=== PATIENT | female | born 1955 | race Caucasian/White ===

== ENCOUNTER → 2016-07-18 | Outpatient (CLI) | payer BC ==
[2016-07-18 09:00] LABS: ALANINE AMINOTRANSFERASE 19 U/L (9-52); ALBUMIN 3.9 g/dL (3.5-5.0); ALKALINE PHOSPHATASE 47 U/L (38-126); ANION GAP 10 (5-19); ASPARTATE AMINO TRANSFERASE 17 U/L (14-36); BILIRUBIN,TOTAL 0.4 mg/dL (0.2-1.3); BLOOD UREA NITROGEN 29 mg/dL (7-20); CALCIUM 9.7 mg/dL (8.4-10.2); CARBON DIOXIDE 33 mmol/L (22-30); CHLORIDE 100 mmol/L (98-107); CHOLESTEROL 124.13 mg/dL (0-200); Direct HDL 45 mg/dL (>40); GLUCOSE 101 mg/dL (75-110); POTASSIUM 4.4 mmol/L (3.6-5.0); SODIUM 142.6 mmol/L (137-145); TOTAL PROTEIN 6.5 g/dL (6.3-8.2); TRIGLYCERIDES 162 mg/dL (<150); URIC ACID 4.9 mg/dL (2.5-7.5)
[2016-07-18 09:11] LABS: DIRECT LDL 46 mg/dL (<100)
[2016-07-18 09:12] LABS: VLDL CHOLESTEROL 32.4 mg/dL (10-31)
[2016-07-18 09:24] LABS: THYROID STIMULATING HORMONE 0.62 uIU/mL (0.47-4.68)
== END ==
LOC: OD 07:19
PROVIDERS: ATTEND Internal Medicine
DX: E55.9 Vitamin D deficiency, unspecified (principal); E11.22 Type 2 diabetes mellitus with diabetic chronic kidney disease; I12.9 Hypertensive chronic kidney disease with stage 1 through stage 4 chronic kidney disease, or unspecified chronic kidney disease; N18.9 Chronic kidney disease, unspecified; E03.8 Other specified hypothyroidism; E78.2 Mixed hyperlipidemia; E79.0 Hyperuricemia without signs of inflammatory arthritis and tophaceous disease
CPT/HCPCS: 36415; 80053; 80061; 82043; 82306; 83036; 84439; 84443; 84550

== ENCOUNTER → 2016-11-18 | Outpatient (CLI) | payer BC ==
[2016-11-18 08:39] LABS: ALANINE AMINOTRANSFERASE 29 U/L (9-52); ALKALINE PHOSPHATASE 55 U/L (38-126); ANION GAP 8 (5-19); ASPARTATE AMINO TRANSFERASE 20 U/L (14-36); BILIRUBIN,DIRECT 0.5 mg/dL (0.0-0.4); BILIRUBIN,TOTAL 0.5 mg/dL (0.2-1.3); BLOOD UREA NITROGEN 28 mg/dL (7-20); CALCIUM 9.4 mg/dL (8.4-10.2); CARBON DIOXIDE 31 mmol/L (22-30); CHLORIDE 103 mmol/L (98-107); CHOLESTEROL 134.92 mg/dL (0-200); CREATININE RESULT 1.34 mg/dL (0.52-1.25); Direct HDL 52 mg/dL (>40); GLUCOSE 93 mg/dL (75-110); POTASSIUM 4.3 mmol/L (3.6-5.0); SODIUM 141.7 mmol/L (137-145); TOTAL PROTEIN 7.1 g/dL (6.3-8.2); TRIGLYCERIDES 132 mg/dL (<150)
[2016-11-18 08:47] LABS: ABSOLUTE EOSINOPHILS # (AUTO) 0.1 10^3/uL (0.0-0.6); ABSOLUTE LYMPHOCYTES (AUTO) 1.6 10^3/uL (0.5-4.7); ABSOLUTE MONOCYTES (AUTO) 0.4 10^3/uL (0.1-1.4); ABSOLUTE NEUT (AUTO) 5.6 10^3/uL (1.7-8.2); BASOPHILS % (AUTO) 0.3 % (0-2); EOSINOPHILS % (AUTO) 1.9 % (0-6); HEMATOCRIT 35.8 % (36.0-47.0); HEMOGLOBIN 11.4 g/dL (12.0-15.5); HGB HCT DIFFERENCE -1.6; LYMPHOCYTES % (AUTO) 20.9 % (13-45); MEAN CORPUSCULAR HEMOGLOBIN 24.1 pg (27.0-33.4); MEAN CORPUSCULAR HGB CONC 31.9 g/dL (32.0-36.0); MEAN CORPUSCULAR VOLUME 76 fl (80-97); MONOCYTES % (AUTO) 5.2 % (3-13); RED BLOOD COUNT 4.74 10^6/uL (3.72-5.28); SEGMENTED NEUTROPHILS % (AUTO) 71.7 % (42-78); WHITE BLOOD COUNT 7.8 10^3/uL (4.0-10.5)
[2016-11-18 08:50] LABS: DIRECT LDL 48 mg/dL (<100)
== END ==
LOC: OD 07:04
PROVIDERS: ATTEND Internal Medicine
DX: E11.22 Type 2 diabetes mellitus with diabetic chronic kidney disease (principal); E78.2 Mixed hyperlipidemia; D50.8 Other iron deficiency anemias
CPT/HCPCS: 36415; 80053; 80061; 82728; 83036; 85025

== ENCOUNTER → 2017-01-16 | Outpatient (CLI) | payer BC ==
[2017-01-16 12:48] LABS: ABSOLUTE EOSINOPHILS # (AUTO) 0.1 10^3/uL (0.0-0.6); ABSOLUTE LYMPHOCYTES (AUTO) 1.2 10^3/uL (0.5-4.7); ABSOLUTE MONOCYTES (AUTO) 0.5 10^3/uL (0.1-1.4); ABSOLUTE NEUT (AUTO) 4.7 10^3/uL (1.7-8.2); BASOPHILS % (AUTO) 0.3 % (0-2); EOSINOPHILS % (AUTO) 1.1 % (0-6); HEMATOCRIT 36.9 % (36.0-47.0); HGB HCT DIFFERENCE -0.9; LYMPHOCYTES % (AUTO) 17.7 % (13-45); MEAN CORPUSCULAR HEMOGLOBIN 25.3 pg (27.0-33.4); MEAN CORPUSCULAR HGB CONC 32.4 g/dL (32.0-36.0); MEAN CORPUSCULAR VOLUME 78 fl (80-97); MONOCYTES % (AUTO) 8.4 % (3-13); RED BLOOD COUNT 4.74 10^6/uL (3.72-5.28); RED CELL DISTRIBUTION WIDTH 17.2 % (11.5-14.0); SEGMENTED NEUTROPHILS % (AUTO) 72.5 % (42-78); WHITE BLOOD COUNT 6.5 10^3/uL (4.0-10.5)
[2017-01-16 13:14] LABS: ANION GAP 13 (5-19); BLOOD UREA NITROGEN 29 mg/dL (7-20); CALCIUM 9.7 mg/dL (8.4-10.2); CARBON DIOXIDE 27 mmol/L (22-30); CHLORIDE 100 mmol/L (98-107); CREATININE RESULT 1.23 mg/dL (0.52-1.25); GLUCOSE 113 mg/dL (75-110); POTASSIUM 4.1 mmol/L (3.6-5.0); SODIUM 140.4 mmol/L (137-145)
== END ==
LOC: OD 10:15
PROVIDERS: ATTEND Physician Assistant
DX: D50.8 Other iron deficiency anemias (principal); I10 Essential (primary) hypertension
CPT/HCPCS: 36415; 80048; 85025

== ENCOUNTER → 2017-02-20 | Outpatient (CLI) | payer BC ==
[2017-02-20 08:13] LABS: ABSOLUTE EOSINOPHILS # (AUTO) 0.1 10^3/uL (0.0-0.6); ABSOLUTE LYMPHOCYTES (AUTO) 1.5 10^3/uL (0.5-4.7); ABSOLUTE MONOCYTES (AUTO) 0.4 10^3/uL (0.1-1.4); ABSOLUTE NEUT (AUTO) 4.1 10^3/uL (1.7-8.2); BASOPHILS % (AUTO) 0.4 % (0-2); EOSINOPHILS % (AUTO) 1.9 % (0-6); HEMATOCRIT 33.4 % (36.0-47.0); HGB HCT DIFFERENCE -0.4; LYMPHOCYTES % (AUTO) 23.9 % (13-45); MEAN CORPUSCULAR HEMOGLOBIN 25.6 pg (27.0-33.4); MEAN CORPUSCULAR HGB CONC 32.8 g/dL (32.0-36.0); MEAN CORPUSCULAR VOLUME 78 fl (80-97); MONOCYTES % (AUTO) 5.9 % (3-13); RED BLOOD COUNT 4.28 10^6/uL (3.72-5.28); RED CELL DISTRIBUTION WIDTH 17.2 % (11.5-14.0); SEGMENTED NEUTROPHILS % (AUTO) 67.9 % (42-78); WHITE BLOOD COUNT 6.1 10^3/uL (4.0-10.5)
[2017-02-20 08:39] LABS: ALANINE AMINOTRANSFERASE 19 U/L (9-52); ALBUMIN 3.8 g/dL (3.5-5.0); ALKALINE PHOSPHATASE 63 U/L (38-126); ANION GAP 7 (5-19); ASPARTATE AMINO TRANSFERASE 17 U/L (14-36); BILIRUBIN,DIRECT 0.4 mg/dL (0.0-0.4); BILIRUBIN,TOTAL 0.4 mg/dL (0.2-1.3); BLOOD UREA NITROGEN 32 mg/dL (7-20); CALCIUM 10.1 mg/dL (8.4-10.2); CARBON DIOXIDE 32 mmol/L (22-30); CHLORIDE 102 mmol/L (98-107); CREATININE RESULT 1.43 mg/dL (0.52-1.25); Direct HDL 47 mg/dL (>40); GLUCOSE 112 mg/dL (75-110); POTASSIUM 4.4 mmol/L (3.6-5.0); SODIUM 141.3 mmol/L (137-145); TOTAL PROTEIN 6.8 g/dL (6.3-8.2); TRIGLYCERIDES 182 mg/dL (<150); URIC ACID 5.6 mg/dL (2.5-7.5)
[2017-02-20 08:51] LABS: DIRECT LDL 57 mg/dL (<100)
[2017-02-20 09:11] LABS: THYROID STIMULATING HORMONE 1.24 uIU/mL (0.47-4.68)
[2017-02-20 09:18] LABS: VLDL CHOLESTEROL 36.4 mg/dL (10-31)
== END ==
LOC: OD 07:05
PROVIDERS: ATTEND Internal Medicine
DX: E11.22 Type 2 diabetes mellitus with diabetic chronic kidney disease (principal); N18.3 Chronic kidney disease, stage 3 (moderate); E78.2 Mixed hyperlipidemia; D50.8 Other iron deficiency anemias; E03.8 Other specified hypothyroidism; E79.0 Hyperuricemia without signs of inflammatory arthritis and tophaceous disease
CPT/HCPCS: 36415; 80053; 80061; 82272; 82728; 83036; 83540; 83550; 84439; 84443; 84550; 85025

== ENCOUNTER 2017-03-31 07:05 | Day surgery (SDC) | payer BC ==
[2017-03-31] MEDS ORDERED: NALOXONE HCL INJ/PF 0.4 MG/1 ML SDV ONE (07:19)
[2017-03-31] MEDS ORDERED: GLYCOPYRROLATE INJ 0.4 MG/2 ML VIAL ONE (07:19)
[2017-03-31] MEDS ORDERED: ONDANSETRON HCL INJ/PF 4 MG/2 ML SDV ONE ×2 (07:19→10:14)
[2017-03-31] MEDS ORDERED: GLUCAGON,HUMAN RECOMB 1 MG INJ ONE (07:21)
[2017-03-31] MEDS ORDERED: EPINEPHRINE INJ 1 MG/10 ML DISP.SYRIN ONE (07:21)
[2017-03-31] MEDS ORDERED: FLUMAZENIL INJ 0.5 MG/5 ML VIAL ONE (07:21)
[2017-03-31 07:29] LABS: HEMATOCRIT 36.9 % (36.0-47.0); HEMOGLOBIN 12.2 g/dL (12.0-15.5); HGB HCT DIFFERENCE -0.3; MEAN CORPUSCULAR HEMOGLOBIN 25.4 pg (27.0-33.4); MEAN CORPUSCULAR VOLUME 77 fl (80-97); RED CELL DISTRIBUTION WIDTH 16.6 % (11.5-14.0); WHITE BLOOD COUNT 9.2 10^3/uL (4.0-10.5)
[2017-03-31 07:53] LABS: ANION GAP 10 (5-19); BLOOD UREA NITROGEN 16 mg/dL (7-20); CARBON DIOXIDE 32 mmol/L (22-30); CHLORIDE 99 mmol/L (98-107); CREATININE RESULT 1.18 mg/dL (0.52-1.25); GLUCOSE 87 mg/dL (75-110); POTASSIUM 3.7 mmol/L (3.6-5.0); SODIUM 141.4 mmol/L (137-145)
[2017-03-31] MEDS: MIDAZOLAM 2 MG/2 ML INJ ONE ×3 (08:57→09:17)
[2017-03-31] MEDS: FENTANYL CITRATE INJ/PF 100 MCG/2 ML AMPUL ONE ×3 (09:00→09:11)
--- NOTE | 2017-03-31 10:00 | PDOC DISCHARGE SUMMARY ---
Discharge Summary (SDC) - Discharge Final Diagnosis: Sigmoid diverticulosis. Internal hemorrhoids. Date of Surgery: 03/31/17 Discharge Date: 03/31/17 Condition: Good Treatment or Instructions: Colonoscopy. October discharge patient home. Follow-up with me next week. Prescriptions: Hydrocortisone/Pramoxine [Analpram Hc 2.5% Cream] 30 gm RC TID 7 Days #1 cream.[email or web address] Referrals: ANDRY PANTOJA MD [Primary Care Provider] - Discharge Diet: As Tolerated Discharge Activity: Activity As Tolerated Report the Following to Your Physician Immediately: Increase in Pain, Unusual Bleeding
--- NOTE | 2017-03-31 10:01 | Operative Report ---
Operative Report DATE OF SURGERY: 03/31/17 PREOPERATIVE DIAGNOSIS: Heme positive stool POSTOPERATIVE DIAGNOSIS: Heme positive stool, diverticulosis of the colon. Prolapsing internal hemorrhoids OPERATION: Colonoscopy SURGEON: IFRAH MARIO ANESTHESIA: Moderate Sedation TISSUE REMOVED OR ALTERED: None COMPLICATIONS: None ESTIMATED BLOOD LOSS: None INTRAOPERATIVE FINDINGS: Multiple large sigmoid colon diverticuli. Prolapsed internal hemorrhoids. PROCEDURE: Informed consent was obtained. Patient was brought to the endoscopy suite. IV sedation with Versed and fentanyl was administered. Digital rectal exam revealed no palpable perianal masses, however, she had prolapsed internal hemorrhoids without evidence of strangulation or thrombosis. There were reducible. Endoscope was passed via the patient's anus it was fed to the cecum. The bowel prep was fair with liquid green stool throughout the colon requiring irrigation aspiration to obtain adequate visualization. The cecum, right colon, transverse colon, and descending colon all appeared normal other than marked redundancies. No polyps and no masses were seen. The sigmoid colon had multiple large diverticuli but otherwise appeared normal. The rectum appeared normal. Patient tolerated procedure well with no apparent complications and was taken to the recovery in stable condition. Colonoscopy demonstrated incidental large sigmoid diverticulosis. No evidence of malignancy found. She does have internal hemorrhoids. Will place her on Analpram and will follow up with the patient.
[2017-03-31 11:56] VITALS: BP 181/74
== END 2017-03-31 11:00 | disposition home or self-care (01) ==
LOC: END 07:05
PROVIDERS: ATTEND Surgery
DX: K57.30 Diverticulosis of large intestine without perforation or abscess without bleeding (principal); K64.8 Other hemorrhoids; K21.9 Gastro-esophageal reflux disease without esophagitis; I10 Essential (primary) hypertension; M06.9 Rheumatoid arthritis, unspecified; E78.00 Pure hypercholesterolemia, unspecified; I12.9 Hypertensive chronic kidney disease with stage 1 through stage 4 chronic kidney disease, or unspecified chronic kidney disease; E11.22 Type 2 diabetes mellitus with diabetic chronic kidney disease; N18.9 Chronic kidney disease, unspecified; Z88.2 Allergy status to sulfonamides; Z88.8 Allergy status to other drugs, medicaments and biological substances; Z79.82 Long term (current) use of aspirin; Z79.899 Other long term (current) drug therapy; Z79.84 Long term (current) use of oral hypoglycemic drugs
CPT/HCPCS: 45378; 36415; 82962; 85027; 80048; J2250; J3010; J2405; J0171; J1610; J2310; J3490

== ENCOUNTER → 2017-04-06 | Outpatient (CLI) | payer BC ==
[2017-04-07 09:12] LABS: ALANINE AMINOTRANSFERASE 30 U/L (9-52); ALBUMIN 4.3 g/dL (3.5-5.0); ALKALINE PHOSPHATASE 65 U/L (38-126); ANION GAP 14 (5-19); ASPARTATE AMINO TRANSFERASE 15 U/L (14-36); BILIRUBIN,DIRECT 0.4 mg/dL (0.0-0.4); BILIRUBIN,TOTAL 0.5 mg/dL (0.2-1.3); BLOOD UREA NITROGEN 25 mg/dL (7-20); CALCIUM 9.5 mg/dL (8.4-10.2); CARBON DIOXIDE 30 mmol/L (22-30); CHLORIDE 101 mmol/L (98-107); CREATININE RESULT 1.24 mg/dL (0.52-1.25); GLUCOSE 98 mg/dL (75-110); POTASSIUM 4.4 mmol/L (3.6-5.0); SODIUM 144.7 mmol/L (137-145); TOTAL PROTEIN 6.9 g/dL (6.3-8.2)
== END ==
LOC: OD 14:09
PROVIDERS: ATTEND Internal Medicine
DX: N18.3 Chronic kidney disease, stage 3 (moderate) (principal)
CPT/HCPCS: 36415; 80053

== ENCOUNTER → 2017-04-08 | Outpatient (CLI) | payer BC ==
--- NOTE | 2017-04-08 09:52 | WOMENS IMAGING REPORT ---
EXAM DESCRIPTION: U/S ABDOMEN LIMITED COMPLETED DATE/TIME: 04/08/2017 8:18 am REASON FOR STUDY: UNSPECIFIED ABDOMINAL PAIN R10.9 UNSPECIFIED ABDOMINAL PAIN COMPARISON: 2011. TECHNIQUE: Dynamic and static grayscale images acquired of the abdomen and recorded on PACS. Additio nal selected color Doppler and spectral images recorded. LIMITATIONS: None. FINDINGS: PANCREAS: No masses. Visualized pancreatic duct normal caliber. LIVER: Echogenic appearance suggests fatty change. Just under 18 cm. No focal lesion. LIVER VASCULATURE: Normal directional flow of the main portal vein and hepatic veins. GALLBLADDER: Surgically absent. ULTRASOUND-DETECTED CULVER'S SIGN: Not applicable. INTRAHEPATIC DUCTS AND COMMON DUCT: CBD and intrahepatic ducts normal caliber. No filling defects. INFERIOR VENA CAVA: Normal flow. AORTA: No aneurysm. RIGHT KIDNEY: Cortical thinning. No urinary obstruction evident. PERITONEAL AND RIGHT PLEURAL SPACE: No ascites or effusions. OTHER: Ventral palpable abnormality reported above the level of the umbilicus. Additional imaging th rough this area suggests slight ventral hernia in the deep subcutaneous tissues. IMPRESSION: 1. Fatty liver. 2. Probable mild deep ventral hernia. This looks supraumbilical. TECHNICAL DOCUMENTATION: JOB ID: [id number] [employer]- All Rights Reserved
== END ==
LOC: WI 07:43
PROVIDERS: ATTEND Surgery
DX: R10.9 Unspecified abdominal pain (principal)
CPT/HCPCS: 76705

== ENCOUNTER → 2017-06-26 | Outpatient (CLI) | payer BC ==
--- NOTE | 2017-06-26 09:27 | WOMENS IMAGING REPORT ---
EXAM DESCRIPTION: BONE DENSITY HIP/SPINE COMPLETED DATE/TIME: 06/26/2017 9:09 am REASON FOR STUDY: OSTEOPOROSIS M81.0 AGE-RELATED OSTEOPOROSIS W/O CURRENT PATHOLOGICAL FRAC COMPARISON: 05/08/2015 TECHNIQUE: Dual-Energy X-ray Absorptiometry (DEXA) of the AP Spine and Hip. LIMITATIONS: None. FINDINGS: LUMBAR SPINE: The bone mineral density (BMD) measured from L1-L4 in the AP projection correlates with a T-score of -1.4, which is osteopenia as defined by the World Health Organization. -3.6% change since prior stud y. HIP: The bone mineral density (BMD) measured in the left hip correlates with a T-score of 0.6 in the femor al neck, which is normal as defined by the World Health Organization. -15% change since prior study. IMPRESSION: 1. LUMBAR SPINE: OSTEOPENIA. 2. HIP: NORMAL. COMMENT: The World Health Organization defines low BMD as follows: T-score: Normal: Greater than -1.0 Osteopenia: Between -1.0 and -2.5 Osteoporosis: Less than -2.5 without fractures Established osteoporosis: Less than -2.5 with fractures In general, you may wish to consider: Diagnosis Treatment Follow-up DEXA Normal BMD Prevention 2-3 years Osteopenia Prevention/Therapy 1-2 years Osteoporosis Therapy Yearly TECHNICAL DOCUMENTATION: JOB ID: [id number]- All Rights Reserved
== END ==
LOC: WI 08:04
PROVIDERS: ATTEND Internal Medicine
DX: M81.0 Age-related osteoporosis without current pathological fracture (principal)
CPT/HCPCS: 77080

== ENCOUNTER → 2017-08-11 | Outpatient (CLI) | payer BC ==
[2017-08-11 08:11] LABS: ABSOLUTE EOSINOPHILS # (AUTO) 0.2 10^3/uL (0.0-0.6); ABSOLUTE LYMPHOCYTES (AUTO) 1.5 10^3/uL (0.5-4.7); ABSOLUTE MONOCYTES (AUTO) 0.5 10^3/uL (0.1-1.4); ABSOLUTE NEUT (AUTO) 4.6 10^3/uL (1.7-8.2); BASOPHILS % (AUTO) 0.4 % (0-2); EOSINOPHILS % (AUTO) 2.9 % (0-6); HEMATOCRIT 37.3 % (36.0-47.0); HEMOGLOBIN 11.9 g/dL (12.0-15.5); MEAN CORPUSCULAR HEMOGLOBIN 25.1 pg (27.0-33.4); MEAN CORPUSCULAR HGB CONC 31.9 g/dL (32.0-36.0); MEAN CORPUSCULAR VOLUME 79 fl (80-97); MONOCYTES % (AUTO) 7.3 % (3-13); PLATELET COUNT 252 10^3/uL (150-450); RED BLOOD COUNT 4.74 10^6/uL (3.72-5.28); RED CELL DISTRIBUTION WIDTH 16.3 % (11.5-14.0); SEGMENTED NEUTROPHILS % (AUTO) 67.4 % (42-78); TOTAL CELLS COUNTED % (AUTO) 100 %; WHITE BLOOD COUNT 6.9 10^3/uL (4.0-10.5)
[2017-08-11 08:30] LABS: ALANINE AMINOTRANSFERASE 25 U/L (9-52); ALKALINE PHOSPHATASE 54 U/L (38-126); ANION GAP 7 (5-19); ASPARTATE AMINO TRANSFERASE 20 U/L (14-36); BILIRUBIN,DIRECT 0.4 mg/dL (0.0-0.4); BILIRUBIN,TOTAL 0.4 mg/dL (0.2-1.3); BLOOD UREA NITROGEN 26 mg/dL (7-20); CALCIUM 10.5 mg/dL (8.4-10.2); CARBON DIOXIDE 33 mmol/L (22-30); CHLORIDE 103 mmol/L (98-107); CHOLESTEROL 137.12 mg/dL (0-200); GLUCOSE 107 mg/dL (75-110); POTASSIUM 4.5 mmol/L (3.6-5.0); SODIUM 143.3 mmol/L (137-145); TRIGLYCERIDES 169 mg/dL (<150); URIC ACID 5.1 mg/dL (2.5-7.5)
[2017-08-11 08:41] LABS: DIRECT LDL 56 mg/dL (<100)
[2017-08-11 08:46] LABS: FREE T4 (FREE THYROXINE) 1.66 ng/dL (0.78-2.19)
[2017-08-11 09:00] LABS: THYROID STIMULATING HORMONE 2.23 uIU/mL (0.47-4.68)
[2017-08-11 09:09] LABS: VLDL CHOLESTEROL 33.8 mg/dL (10-31)
== END ==
LOC: OD 07:08
PROVIDERS: ATTEND Internal Medicine
DX: E11.22 Type 2 diabetes mellitus with diabetic chronic kidney disease (principal); E03.8 Other specified hypothyroidism; D50.8 Other iron deficiency anemias; E79.0 Hyperuricemia without signs of inflammatory arthritis and tophaceous disease
CPT/HCPCS: 36415; 80053; 80061; 82728; 83036; 84439; 84443; 84550; 85025

== ENCOUNTER → 2017-11-06 | Outpatient (CLI) | payer BC ==
[2017-11-07 10:40] LABS: ALANINE AMINOTRANSFERASE 27 U/L (9-52); ALBUMIN 4.1 g/dL (3.5-5.0); ALKALINE PHOSPHATASE 60 U/L (38-126); ANION GAP 11 (5-19); ASPARTATE AMINO TRANSFERASE 20 U/L (14-36); BILIRUBIN,DIRECT 0.3 mg/dL (0.0-0.4); BILIRUBIN,TOTAL 0.5 mg/dL (0.2-1.3); BLOOD UREA NITROGEN 24 mg/dL (7-20); CARBON DIOXIDE 33 mmol/L (22-30); CHLORIDE 98 mmol/L (98-107); CHOLESTEROL 163.86 mg/dL (0-200); GLUCOSE 102 mg/dL (75-110); POTASSIUM 4.5 mmol/L (3.6-5.0); SODIUM 141.6 mmol/L (137-145); TOTAL PROTEIN 6.6 g/dL (6.3-8.2); TRIGLYCERIDES 214 mg/dL (<150); URIC ACID 4.6 mg/dL (2.5-7.5)
[2017-11-07 10:51] LABS: DIRECT LDL 66 mg/dL (<100)
[2017-11-07 10:56] LABS: VLDL CHOLESTEROL 42.8 mg/dL (10-31)
[2017-11-09 14:41] LABS: CALCITONIN SERUM 2.7 pg/mL (0.0-5.0)
== END ==
LOC: OD 09:13
PROVIDERS: ATTEND Internal Medicine
DX: E55.9 Vitamin D deficiency, unspecified (principal); E78.2 Mixed hyperlipidemia; E79.0 Hyperuricemia without signs of inflammatory arthritis and tophaceous disease; N18.3 Chronic kidney disease, stage 3 (moderate)
CPT/HCPCS: 36415; 80053; 80061; 82306; 82308; 83970; 84550

== ENCOUNTER → 2018-02-02 | Outpatient (CLI) | payer BC ==
[2018-02-02 10:02] LABS: ALANINE AMINOTRANSFERASE 20 U/L (9-52); ALBUMIN 4.1 g/dL (3.5-5.0); ALKALINE PHOSPHATASE 54 U/L (38-126); ANION GAP 12 (5-19); ASPARTATE AMINO TRANSFERASE 18 U/L (14-36); BILIRUBIN,DIRECT 0.4 mg/dL (0.0-0.4); BILIRUBIN,TOTAL 0.5 mg/dL (0.2-1.3); BLOOD UREA NITROGEN 28 mg/dL (7-20); CALCIUM 10.2 mg/dL (8.4-10.2); CARBON DIOXIDE 32 mmol/L (22-30); CHLORIDE 99 mmol/L (98-107); CHOLESTEROL 140.64 mg/dL (0-200); GLUCOSE 114 mg/dL (75-110); POTASSIUM 4.8 mmol/L (3.6-5.0); SODIUM 143.1 mmol/L (137-145); TOTAL PROTEIN 7.3 g/dL (6.3-8.2); TRIGLYCERIDES 189 mg/dL (<150)
[2018-02-02 10:12] LABS: DIRECT LDL 53 mg/dL (<100)
[2018-02-02 10:16] LABS: FREE T4 (FREE THYROXINE) 2.25 ng/dL (0.78-2.19)
[2018-02-02 10:19] LABS: VLDL CHOLESTEROL 37.8 mg/dL (10-31)
[2018-02-02 10:30] LABS: THYROID STIMULATING HORMONE 0.83 uIU/mL (0.47-4.68)
== END ==
LOC: OD 08:04
PROVIDERS: ATTEND Internal Medicine
DX: E03.8 Other specified hypothyroidism (principal); E11.22 Type 2 diabetes mellitus with diabetic chronic kidney disease; N18.9 Chronic kidney disease, unspecified; E78.2 Mixed hyperlipidemia
CPT/HCPCS: 36415; 80053; 80061; 83036; 84439; 84443

== ENCOUNTER → 2018-02-16 | Outpatient (CLI) | payer BC ==
[2018-02-16 17:18] LABS: HEMATOCRIT 35.9 % (36.0-47.0); HEMOGLOBIN 11.6 g/dL (12.0-15.5); MEAN CORPUSCULAR HEMOGLOBIN 25.1 pg (27.0-33.4); MEAN CORPUSCULAR HGB CONC 32.3 g/dL (32.0-36.0); MEAN CORPUSCULAR VOLUME 78 fl (80-97); PLATELET COUNT 302 10^3/uL (150-450); RED BLOOD COUNT 4.62 10^6/uL (3.72-5.28); RED CELL DISTRIBUTION WIDTH 16.3 % (11.5-14.0)
[2018-02-16 17:46] LABS: ALANINE AMINOTRANSFERASE 26 U/L (9-52); ALKALINE PHOSPHATASE 82 U/L (38-126); ASPARTATE AMINO TRANSFERASE 17 U/L (14-36); BILIRUBIN,DIRECT 0.3 mg/dL (0.0-0.4); BILIRUBIN,TOTAL 0.4 mg/dL (0.2-1.3); C-REACTIVE PROTEIN 14.3 mg/L (<10.0); TOTAL PROTEIN 7.1 g/dL (6.3-8.2)
== END ==
LOC: OD 16:18
PROVIDERS: ATTEND Internal Medicine Rheumatology
DX: M05.79 Rheumatoid arthritis with rheumatoid factor of multiple sites without organ or systems involvement (principal); Z79.899 Other long term (current) drug therapy
CPT/HCPCS: 36415; 80076; 82565; 85027; 86140

== ENCOUNTER → 2018-03-06 | Outpatient (CLI) | payer BC ==
[2018-03-06 11:45] LABS: ALANINE AMINOTRANSFERASE 16 U/L (9-52); ALBUMIN 3.9 g/dL (3.5-5.0); ALKALINE PHOSPHATASE 51 U/L (38-126); ANION GAP 7 (5-19); ASPARTATE AMINO TRANSFERASE 20 U/L (14-36); BILIRUBIN,DIRECT 0.4 mg/dL (0.0-0.4); BILIRUBIN,TOTAL 0.5 mg/dL (0.2-1.3); BLOOD UREA NITROGEN 23 mg/dL (7-20); CALCIUM 9.9 mg/dL (8.4-10.2); CARBON DIOXIDE 32 mmol/L (22-30); CHLORIDE 103 mmol/L (98-107); GLUCOSE 80 mg/dL (75-110); POTASSIUM 4.4 mmol/L (3.6-5.0); SODIUM 142.2 mmol/L (137-145); TOTAL PROTEIN 7.1 g/dL (6.3-8.2)
== END ==
LOC: OD 10:19
PROVIDERS: ATTEND Internal Medicine
DX: E11.22 Type 2 diabetes mellitus with diabetic chronic kidney disease (principal); N18.3 Chronic kidney disease, stage 3 (moderate)
CPT/HCPCS: 36415; 80053

== ENCOUNTER → 2018-07-03 | Outpatient (CLI) | payer BC ==
[2018-07-03 10:13] LABS: HEMATOCRIT 34.2 % (36.0-47.0); HEMOGLOBIN 11.1 g/dL (12.0-15.5); MEAN CORPUSCULAR HEMOGLOBIN 25.2 pg (27.0-33.4); MEAN CORPUSCULAR HGB CONC 32.5 g/dL (32.0-36.0); MEAN CORPUSCULAR VOLUME 78 fl (80-97); PLATELET COUNT 268 10^3/uL (150-450); RED BLOOD COUNT 4.41 10^6/uL (3.72-5.28); RED CELL DISTRIBUTION WIDTH 16.5 % (11.5-14.0); WHITE BLOOD COUNT 5.9 10^3/uL (4.0-10.5)
[2018-07-03 10:35] LABS: ALANINE AMINOTRANSFERASE 18 U/L (9-52); ALBUMIN 3.7 g/dL (3.5-5.0); ALKALINE PHOSPHATASE 63 U/L (38-126); ANION GAP 9 (5-19); ASPARTATE AMINO TRANSFERASE 20 U/L (14-36); BILIRUBIN,DIRECT 0.4 mg/dL (0.0-0.4); BILIRUBIN,TOTAL 0.5 mg/dL (0.2-1.3); BLOOD UREA NITROGEN 25 mg/dL (7-20); CALCIUM 9.5 mg/dL (8.4-10.2); CARBON DIOXIDE 29 mmol/L (22-30); CHLORIDE 103 mmol/L (98-107); CHOLESTEROL 135.57 mg/dL (0-200); GLUCOSE 112 mg/dL (75-110); POTASSIUM 4.2 mmol/L (3.6-5.0); SODIUM 140.5 mmol/L (137-145); TOTAL PROTEIN 6.6 g/dL (6.3-8.2); TRIGLYCERIDES 161 mg/dL (<150); URIC ACID 5.1 mg/dL (2.5-7.5)
[2018-07-03 10:45] LABS: DIRECT LDL 69 mg/dL (<100)
[2018-07-03 11:01] LABS: THYROID STIMULATING HORMONE 1.15 uIU/mL (0.47-4.68)
[2018-07-03 11:05] LABS: ABSOLUTE MONOCYTES # (MANUAL) 0.4 10^3/uL (0.1-1.4); ABSOLUTE NEUTROPHILS# (MANUAL) 4.5 10^3/uL (1.7-8.2); BASOPHILS % (MANUAL) 0 % (0-2); EOSINOPHILS % (MANUAL) 1 % (0-6); LYMPHOCYTES % (MANUAL) 17 % (13-45); METAMYELOCYTES % (MANUAL) 1 % ({null, 0}); MONOCYTES % (MANUAL) 6 % (3-13); SEGMENTED NEUTROPHILS % (MAN) 75 % (42-78); TOTAL CELLS COUNTED 100
[2018-07-03 11:06] LABS: ANISOCYTOSIS 1+; HYPOCHROMASIA 1+; OVALOCYTES 1+; POLYCHROMASIA SLIGHT; TEAR DROP CELLS SLIGHT
[2018-07-03 11:07] LABS: PLATELET COMMENT ADEQUATE; POIKILOCYTOSIS 1+
[2018-07-03 11:13] LABS: VLDL CHOLESTEROL 32.2 mg/dL (10-31)
[2018-07-05 03:36] LABS: CREATININE URINE 118.3 mg/dL (Not Estab.); MICROALBUMIN URINE 5.4 ug/mL (Not Estab.)
== END ==
LOC: OD 08:35
PROVIDERS: ATTEND Internal Medicine
DX: E79.0 Hyperuricemia without signs of inflammatory arthritis and tophaceous disease (principal); E11.22 Type 2 diabetes mellitus with diabetic chronic kidney disease; D50.8 Other iron deficiency anemias; E78.2 Mixed hyperlipidemia; N18.3 Chronic kidney disease, stage 3 (moderate); E03.8 Other specified hypothyroidism
CPT/HCPCS: 36415; 80053; 80061; 82043; 82570; 82728; 83036; 84439; 84443; 84550; 85025

== ENCOUNTER → 2018-09-25 | Outpatient (CLI) | payer BC ==
[2018-09-25 10:28] LABS: HEMATOCRIT 35.8 % (36.0-47.0); HEMOGLOBIN 11.6 g/dL (12.0-15.5); MEAN CORPUSCULAR HEMOGLOBIN 25.2 pg (27.0-33.4); MEAN CORPUSCULAR HGB CONC 32.4 g/dL (32.0-36.0); MEAN CORPUSCULAR VOLUME 78 fl (80-97); PLATELET COUNT 259 10^3/uL (150-450); RED BLOOD COUNT 4.61 10^6/uL (3.72-5.28); RED CELL DISTRIBUTION WIDTH 16.9 % (11.5-14.0); WHITE BLOOD COUNT 5.2 10^3/uL (4.0-10.5)
[2018-09-25 10:45] LABS: ALANINE AMINOTRANSFERASE 22 U/L (9-52); ALBUMIN 3.9 g/dL (3.5-5.0); ALKALINE PHOSPHATASE 69 U/L (38-126); ANION GAP 6 (5-19); ASPARTATE AMINO TRANSFERASE 26 U/L (14-36); BILIRUBIN,DIRECT 0.4 mg/dL (0.0-0.4); BILIRUBIN,TOTAL 0.5 mg/dL (0.2-1.3); BLOOD UREA NITROGEN 22 mg/dL (7-20); CARBON DIOXIDE 35 mmol/L (22-30); CHLORIDE 102 mmol/L (98-107); CHOLESTEROL 142.17 mg/dL (0-200); GLUCOSE 92 mg/dL (75-110); POTASSIUM 4.4 mmol/L (3.6-5.0); SODIUM 142.9 mmol/L (137-145); TOTAL PROTEIN 7.2 g/dL (6.3-8.2); TRIGLYCERIDES 164 mg/dL (<150)
[2018-09-25 10:55] LABS: ABSOLUTE LYMPHOCYTES# (MANUAL) 1.8 10^3/uL (0.5-4.7); ABSOLUTE MONOCYTES # (MANUAL) 0.4 10^3/uL (0.1-1.4); ABSOLUTE NEUTROPHILS# (MANUAL) 2.9 10^3/uL (1.7-8.2); BASOPHILS % (MANUAL) 1 % (0-2); EOSINOPHILS % (MANUAL) 1 % (0-6); LYMPHOCYTES % (MANUAL) 34 % (13-45); MONOCYTES % (MANUAL) 8 % (3-13); SEGMENTED NEUTROPHILS % (MAN) 56 % (42-78); TOTAL CELLS COUNTED 100
[2018-09-25 10:56] LABS: DIRECT LDL 69 mg/dL (<100)
[2018-09-25 10:57] LABS: ANISOCYTOSIS 1+; HYPOCHROMASIA SLIGHT; OVALOCYTES SLIGHT; POIKILOCYTOSIS SLIGHT; POLYCHROMASIA SLIGHT
[2018-09-25 10:58] LABS: VLDL CHOLESTEROL 32.8 mg/dL (10-31)
[2018-09-25 10:59] LABS: FREE T4 (FREE THYROXINE) 1.97 ng/dL (0.78-2.19)
[2018-09-25 11:04] LABS: PLATELET COMMENT ADEQUATE
[2018-09-25 11:13] LABS: THYROID STIMULATING HORMONE 1.26 uIU/mL (0.47-4.68)
== END ==
LOC: OD 09:04
PROVIDERS: ATTEND Internal Medicine
DX: E11.22 Type 2 diabetes mellitus with diabetic chronic kidney disease (principal); N18.3 Chronic kidney disease, stage 3 (moderate); E03.8 Other specified hypothyroidism; E79.0 Hyperuricemia without signs of inflammatory arthritis and tophaceous disease; D50.8 Other iron deficiency anemias
CPT/HCPCS: 36415; 80053; 80061; 83036; 84439; 84443; 85025

== ENCOUNTER → 2018-12-25 | Outpatient (CLI) | payer MEDICARE ==
[2018-12-25 09:34] LABS: HEMATOCRIT 35.5 % (36.0-47.0); HEMOGLOBIN 11.4 g/dL (12.0-15.5); MEAN CORPUSCULAR HEMOGLOBIN 25.2 pg (27.0-33.4); MEAN CORPUSCULAR HGB CONC 32.2 g/dL (32.0-36.0); MEAN CORPUSCULAR VOLUME 78 fl (80-97); PLATELET COUNT 234 10^3/uL (150-450); RED BLOOD COUNT 4.54 10^6/uL (3.72-5.28); RED CELL DISTRIBUTION WIDTH 16.8 % (11.5-14.0); WHITE BLOOD COUNT 7.7 10^3/uL (4.0-10.5)
[2018-12-25 09:51] LABS: ALANINE AMINOTRANSFERASE 16 U/L (9-52); ALBUMIN 3.9 g/dL (3.5-5.0); ALKALINE PHOSPHATASE 66 U/L (38-126); ANION GAP 9 (5-19); ASPARTATE AMINO TRANSFERASE 17 U/L (14-36); BILIRUBIN,DIRECT 0.3 mg/dL (0.0-0.4); BILIRUBIN,TOTAL 0.3 mg/dL (0.2-1.3); BLOOD UREA NITROGEN 28 mg/dL (7-20); CARBON DIOXIDE 32 mmol/L (22-30); CHLORIDE 101 mmol/L (98-107); CHOLESTEROL 149.04 mg/dL (0-200); GLUCOSE 138 mg/dL (75-110); POTASSIUM 4.3 mmol/L (3.6-5.0); SODIUM 141.8 mmol/L (137-145); TOTAL PROTEIN 6.9 g/dL (6.3-8.2); TRIGLYCERIDES 231 mg/dL (<150); URIC ACID 5.1 mg/dL (2.5-7.5)
[2018-12-25 10:05] LABS: DIRECT LDL 70 mg/dL (<100)
[2018-12-25 10:11] LABS: FREE T4 (FREE THYROXINE) 1.7 ng/dL (0.78-2.19)
[2018-12-25 10:15] LABS: VLDL CHOLESTEROL 46.2 mg/dL (10-31)
[2018-12-25 10:25] LABS: ABSOLUTE LYMPHOCYTES# (MANUAL) 1.6 10^3/uL (0.5-4.7); ABSOLUTE MONOCYTES # (MANUAL) 0.3 10^3/uL (0.1-1.4); BASOPHILS % (MANUAL) 0 % (0-2); EOSINOPHILS % (MANUAL) 2 % (0-6); LYMPHOCYTES % (MANUAL) 21 % (13-45); METAMYELOCYTES % (MANUAL) 1 % (0); MONOCYTES % (MANUAL) 4 % (3-13); SEGMENTED NEUTROPHILS % (MAN) 72 % (42-78); THYROID STIMULATING HORMONE 2.33 uIU/mL (0.47-4.68); TOTAL CELLS COUNTED 100
[2018-12-25 10:26] LABS: ANISOCYTOSIS 1+; HYPOCHROMASIA SLIGHT; OVALOCYTES 1+; PLATELET COMMENT ADEQUATE; POIKILOCYTOSIS 2+; POLYCHROMASIA SLIGHT
[2018-12-27 03:36] LABS: CREATININE URINE 150.9 mg/dL (Not Estab.); MICROALBUMIN URINE 11.2 ug/mL (Not Estab.)
== END ==
LOC: OD 08:33
PROVIDERS: ATTEND Internal Medicine
DX: E79.0 Hyperuricemia without signs of inflammatory arthritis and tophaceous disease (principal); E03.9 Hypothyroidism, unspecified; D63.8 Anemia in other chronic diseases classified elsewhere; N18.3 Chronic kidney disease, stage 3 (moderate); E11.22 Type 2 diabetes mellitus with diabetic chronic kidney disease; E03.8 Other specified hypothyroidism; E78.00 Pure hypercholesterolemia, unspecified; E78.2 Mixed hyperlipidemia
CPT/HCPCS: 36415; 80053; 80061; 82043; 82570; 83036; 84439; 84443; 84550; 85025

== ENCOUNTER → 2019-02-08 | Outpatient (CLI) | payer MEDICARE ==
--- NOTE | 2019-02-08 15:15 | WOMENS IMAGING REPORT ---
EXAM DESCRIPTION: 3D SCREENING MAMMO BILAT COMPLETED DATE/TIME: 02/08/2019 2:32 pm REASON FOR STUDY: Z12.31 ENCOUNTER FOR SCREENING MAMMOGRAM FOR MALIGNANT NEOPLASM OF BREAST Z12.31 ENCNTR SCREEN MAMMOGRAM FOR MALIGNANT NEOPLASM OF HILARIO COMPARISON: 06/26/2017 and 05/19/2016. EXAM PARAMETERS: Views: Standard craniocaudal and mediolateral oblique views of each breast recorded using digital acquisition and breast tomosynthesis. Read with the assistance of CAD. [facility] - [email or web address] Delinquency Counselor Version 9.2 LIMITATIONS: None. FINDINGS: No suspicious masses, suspicious calcifications or architectural distortion. No areas of c oncern. IMPRESSION: NEGATIVE MAMMOGRAM. BIRADS 1. BREAST DENSITY: b. There are scattered areas of fibroglandular density. BIRAD: ASSESSMENT: 1 NEGATIVE RECOMMENDATION: ROUTINE SCREENING COMMENT: The patient has been notified of the results by letter per MQSA requirements. Additional no tification policies are in place for contacting patient with suspicious or incomplete findings. Quality ID #225: The [employer] recommends an annual screening mammogram for women aged 40 years or over. This facility utilizes a reminder system to ensure that all patients receive reminder letters, and/or direct phone calls for appointments. This includes reminders for routine scr eening mammograms, diagnostic mammograms, or other Breast Imaging Interventions when appropriate. Th is patient will be placed in the appropriate reminder system. TECHNICAL DOCUMENTATION: FINDING NUMBER: (1) ASSESSMENT: (1) JOB ID: [id number] [employer]- All Rights Reserved Reading location - IP/workstation name: [email or web address]
== END ==
LOC: WI 12:58
PROVIDERS: ATTEND Internal Medicine
DX: Z12.31 Encounter for screening mammogram for malignant neoplasm of breast (principal)
CPT/HCPCS: 77063; 77067

== ENCOUNTER 2019-11-02 20:44 | Inpatient (IN) | payer MEDICARE ==
[2019-11-02] MEDS ORDERED: NORMAL SALINE 1000 ML 1,000 ML IV ONE ×2 (21:57→23:29)
[2019-11-02] MEDS ORDERED: ONDANSETRON HCL INJ/PF 4 MG/2 ML SDV IV ONE (21:58)
--- NOTE | 2019-11-02 22:01 | ER Document Report ---
ED Medical Screen (RME) - General Chief Complaint: Nausea/Vomiting Stated Complaint: VOMITTING/ NAUSEA Time Seen by Provider: 11/02/19 21:50 Primary Care Provider: ANDRY PANTOJA MD [Primary Care Provider] - Follow up as needed Mode of Arrival: Medic Information source: Patient Notes: This 64-year-old female with history of diabetes and high blood pressure presents to the emergency department with reports of nausea and vomiting for the past 5 days. Denies fever and diarrhea. Reports history of recent change in her blood pressure medication. She reports every time they change her BP medication she responds with nausea and vomiting. She reports she has not been any full to keep any fluids or food down for the past 5 days. Denies chest pain denies abdominal pain. No COVID exposure. I have greeted and performed a rapid initial assessment of this patient. A comprehensive ED assessment and evaluation of the patient, analysis of test results and completion of the medical decision making process will be conducted by additional ED providers. TRAVEL OUTSIDE OF THE [place] IN LAST 30 DAYS: No - Related Data Allergies/Adverse Reactions: amlodipine besylate [From [facility]] Allergy (Intermediate, Verified 03/31/17 07:35) Jaundice Sulfa (Sulfonamide Antibiotics) Allergy (Intermediate, Verified 03/31/17 07:35) Jaundice Home Medications: Telmisartan, Alprazolam, Olmesartan Past Medical History - Past Medical History Cardiac Medical History: Reports: Hx Coronary Artery Disease, Hx Hypercholesterolemia, Hx Hypertension Denies: Hx Heart Attack Pulmonary Medical History: Reports: Hx Asthma, Hx Bronchitis, Hx Pneumonia Denies: Hx COPD Neurological Medical History: Denies: Hx Cerebrovascular Accident, Hx Seizures Endocrine Medical History: Reports: Hx Diabetes Mellitus Type 2 Musculoskeltal Medical History: Reports Hx Arthritis Past Surgical History: Reports: Hx Cholecystectomy, Hx Orthopedic Surgery. Denies: Hx Hysterectomy - Immunizations Hx Diphtheria, Pertussis, Tetanus Vaccination: Yes Physical Exam - Vital signs Vitals: Resp Pulse Ox 15 96 11/02/19 20:50 11/02/19 20:50 Course - Vital Signs Vital signs: Temp Pulse Resp BP Pulse Ox 98.7 F 16 158/75 H 98 11/02/19 21:03 11/02/19 21:07 11/02/19 21:07 11/02/19 21:07 Doctor's Discharge - Discharge Referrals: ANDRY PANTOJA MD [Primary Care Provider] - Follow up as needed
[2019-11-02 22:50] LABS: HEMATOCRIT 37.6 % (36.0-47.0); HEMOGLOBIN 12.8 g/dL (12.0-15.5); MEAN CORPUSCULAR HEMOGLOBIN 25.3 pg (27.0-33.4); MEAN CORPUSCULAR VOLUME 75 fl (80-97); PLATELET COUNT 265 10^3/uL (150-450); RED BLOOD COUNT 5.04 10^6/uL (3.72-5.28); WHITE BLOOD COUNT 15.1 10^3/uL (4.0-10.5)
[2019-11-02 22:52] LABS: ALBUMIN 4.6 g/dL (3.5-5.0); ALKALINE PHOSPHATASE 73 U/L (38-126); ASPARTATE AMINO TRANSFERASE 33 U/L (14-36); BILIRUBIN,DIRECT 0.3 mg/dL (0.0-0.4); BILIRUBIN,TOTAL 1.3 mg/dL (0.2-1.3); BLOOD UREA NITROGEN 19 mg/dL (7-20); CALCIUM 9.2 mg/dL (8.4-10.2); CARBON DIOXIDE 26 mmol/L (22-30); CHLORIDE 79 mmol/L (98-107); GLUCOSE 130 mg/dL (75-110); POTASSIUM 3.5 mmol/L (3.6-5.0); TOTAL PROTEIN 7.8 g/dL (6.3-8.2)
[2019-11-02 22:53] LABS: ANION GAP 14 (5-19)
--- NOTE | 2019-11-02 23:10 | RADIOLOGY REPORT (SQ) ---
CLINICAL INDICATION: htn. TECHNIQUE: A single portable AP view was obtained of the chest at 2253 hours. Imaging over penetrated COMPARISON: None. FINDINGS: The cardiomediastinal silhouette is normal. The lungs are grossly clear. No evidence of effusion or pneumothorax. The visualized bones are unremarkable. Mild chronic change IMPRESSION: No evidence of active intrathoracic disease.
--- NOTE | 2019-11-02 23:13 | ER Document Report ---
Entered by KIMBERLY HADDAD SCRIBE 11/02/19 [id number] Acting as scribe for:OH ROGER DO ED GI/ - General Chief Complaint: Nausea/Vomiting Stated Complaint: VOMITTING/ NAUSEA Time Seen by Provider: 11/02/19 21:50 Primary Care Provider: ANDRY PANTOJA MD [Primary Care Provider] - Follow up as needed Mode of Arrival: Medic Information source: Patient Notes: This 64 year old female patient with a PMHx of diabetes, HTN, HLD, and CKD brought in by EMS presents to the ED today with complaints of nausea and vomiting for the past x5 days. Patients states that her blood pressure medication was changed x6 days ago by her PCP Dr. Schwartz from Valsartan to Losartan and that she has been feeling nauseous since. She reports that she is very "sensitive" when her blood pressure medications are changed. She notes poor appetite/fluid intake, sinus congestion that started today, low back pain, LE pain, and generalized weakness. Denies chest pain, shortness of breath, fever, or any urinary symptoms. TRAVEL OUTSIDE OF THE [place] IN LAST 30 DAYS: No - Related Data Allergies/Adverse Reactions: amlodipine besylate [From [facility]] Allergy (Intermediate, Verified 03/31/17 07:35) Jaundice Sulfa (Sulfonamide Antibiotics) Allergy (Intermediate, Verified 03/31/17 07:35) Jaundice Home Medications: Telmisartan, Alprazolam, Olmesartan Past Medical History - General Information source: Patient, [facility] Records - Social History Smoking Status: Never Smoker Cigarette use (# per day): No Chew tobacco use (# tins/day): No Smoking Education Provided: No Frequency of alcohol use: None Drug Abuse: None Lives with: Family Family History: Reviewed & Not Pertinent Patient has suicidal ideation: No Patient has homicidal ideation: No - Past Medical History Cardiac Medical History: Reports: Hx Coronary Artery Disease, Hx Hypercholesterolemia, Hx Hypertension Pulmonary Medical History: Reports: Hx Asthma, Hx Bronchitis, Hx Pneumonia Endocrine Medical History: Reports: Hx Diabetes Mellitus Type 2 Musculoskeletal Medical History: Reports Hx Arthritis Past Surgical History: Reports: Hx Cholecystectomy, Hx Orthopedic Surgery - Immunizations Hx Diphtheria, Pertussis, Tetanus Vaccination: Yes Hx Pneumococcal Vaccination: 06/29/16 Review of Systems - Review of Systems Constitutional: See HPI. denies: Fever EENT: See HPI, Sinus pressure Cardiovascular: See HPI. denies: Chest pain Respiratory: See HPI. denies: Short of breath Gastrointestinal: See HPI, Nausea, Vomiting, Poor appetite, Poor fluid intake Genitourinary: See HPI. denies: Burning, Dysuria, Frequency, Hematuria Female Genitourinary: No symptoms reported Musculoskeletal: See HPI, Back pain Skin: No symptoms reported Hematologic/Lymphatic: No symptoms reported Neurological/Psychological: No symptoms reported -: Yes All other systems reviewed and negative Physical Exam - Vital signs Vitals: Resp Pulse Ox 15 96 11/02/19 20:50 11/02/19 20:50 - General General appearance: Alert In distress: None - HEENT Head: Normocephalic, Atraumatic Eyes: Normal Pupils: PERRL Mucous membranes: Dry - Mildly - Respiratory Respiratory status: No respiratory distress Chest status: Nontender Breath sounds: Normal Chest palpation: Normal - Cardiovascular Rhythm: Regular Heart sounds: Normal auscultation Murmur: No Friction rub: No Gallop: None auscultated - Abdominal Inspection: Other Distension: No distension Bowel sounds: Normal Tenderness: Nontender - Abdomen soft Organomegaly: No organomegaly - Back Back: Normal, Nontender - Extremities General upper extremity: Normal inspection General lower extremity: Normal inspection. No: Edema - Neurological Neuro grossly intact: Yes Orientation: AAOx4 [place]a Coma Scale Eye Opening: Spontaneous [place]a Coma Scale Verbal: Oriented [place]a Coma Scale Motor: Obeys Commands Elda Coma Scale Total: 15 - Psychological Associated symptoms: Normal affect, Normal mood - Skin Skin Temperature: Warm Skin Moisture: Dry Skin Color: Normal Skin Turgor: Elastic Course - Re-evaluation Re-evalutation: 11/03/19 00:30 MDM 64 year old with hypovolemic hyponatremia. She also has low Mg and UTI. Uti has been treated and NS infusing regarding the Na and the Mg has been repleted. I have discussed the pt with the hospitalist service and they will not admit at this time without a ct of the abdomen. This has been ordered. 11/03/19 03:04 Discussed with hospitalist as Ct is now available. Will admit. - Vital Signs Vital signs: Temp Pulse Resp BP Pulse Ox 98.7 F 25 H 153/74 H 92 11/02/19 21:03 11/03/19 01:00 11/02/19 23:02 11/03/19 02:20 - Laboratory Result Diagrams: 11/02/19 21:00 11/02/19 21:00 Laboratory results interpreted by me: 11/02/19 11/02/19 11/02/19 21:00 21:00 21:00 WBC 15.1 H MCV 75 L MCH 25.3 L RDW 17.0 H Seg Neuts % (Manual) 85 H Band Neutrophils % 2 L Lymphocytes % (Manual) 3 L Abs Neuts (Manual) 13.1 H Sodium 118.8 L* Potassium 3.5 L Chloride 79 L Est GFR (MDRD) Non-Af 52 L Glucose 130 H Magnesium 1.2 L* Urine Ketones Urine Nitrite 11/02/19 23:53 WBC MCV MCH RDW Seg Neuts % (Manual) Band Neutrophils % Lymphocytes % (Manual) Abs Neuts (Manual) Sodium Potassium Chloride Est GFR (MDRD) Non-Af Glucose Magnesium Urine Ketones TRACE H Urine Nitrite POSITIVE H - EKG Interpretation by Me EKG shows normal: Sinus rhythm - NSR Nl [place] [address] elevation or depression my interpretation Rhythm: NSR Critical Care Note - Critical Care Note Total time excluding time spent on procedures (mins): 30 Discharge - Discharge Clinical Impression: Hypovolemia, Hyponatremia, Hypomagnesemia, UTI (urinary tract infection) Condition: Fair Disposition: ADMITTED INPATIENT Admitting Provider: Parker (Hospitalist) Unit Admitted: Telemetry Referrals: ANDRY PANTOJA MD [Primary Care Provider] - Follow up as needed I personally performed the services described in the documentation, reviewed and edited the documentation which was dictated to the scribe in my presence, and it accurately records my words and actions.
[2019-11-02 23:33] LABS: ABSOLUTE LYMPHOCYTES# (MANUAL) 0.6 10^3/uL (0.5-4.7); ABSOLUTE MONOCYTES # (MANUAL) 1.2 10^3/uL (0.1-1.4); BAND NEUTROPHILS % (MANUAL) 2 % (3-5); BASOPHILS % (MANUAL) 0 % (0-2); EOSINOPHILS % (MANUAL) 1 % (0-6); HYPERSEGMENTED NEUTROPHILS PRESENT; LYMPHOCYTES % (MANUAL) 3 % (13-45); MONOCYTES % (MANUAL) 8 % (3-13); SEGMENTED NEUTROPHILS % (MAN) 85 % (42-78); TOTAL CELLS COUNTED 100
[2019-11-02 23:34] LABS: ANISOCYTOSIS 1+; HYPOCHROMASIA 1+
[2019-11-02 23:35] LABS: OVALOCYTES SLIGHT; POLYCHROMASIA SLIGHT
[2019-11-02 23:36] LABS: PLATELET COMMENT ADEQUATE
[2019-11-02] MEDS: MAGNESIUM SULFATE/D5W 1 GM/100 ML RTUPB IV SCH (23:36)
[2019-11-03 00:06] LABS: APPEARANCE,URINE CLEAR; BILIRUBIN,URINE NEGATIVE (NEGATIVE); COLOR,URINE YELLOW; GLUCOSE, URINE NEGATIVE (NEGATIVE); KETONES,URINE TRACE mg/dL (NEGATIVE); LEUKOCYTE ESTERASE,URINE NEGATIVE (NEGATIVE); NITRITE,URINE POSITIVE (NEGATIVE); PROTEIN,URINE NEGATIVE (NEGATIVE); UROBILINOGEN,URINE NEGATIVE mg/dL (<2.0)
[2019-11-03] MEDS ORDERED: CEFTRIAXONE 1 GM/D5W RTU 1 GM/50 ML RTUPB IV ONE (00:09)
[2019-11-03] MEDS: MAGNESIUM SULFATE/D5W 1 GM/100 ML RTUPB IV SCH (01:09)
[2019-11-03] MEDS ORDERED: FENTANYL CITRATE INJ/PF 100 MCG/2 ML AMPUL IV ONE (01:14)
[2019-11-03] MEDS ORDERED: ONDANSETRON HCL INJ/PF 4 MG/2 ML SDV IV ONE (01:14)
--- NOTE | 2019-11-03 02:52 | RADIOLOGY REPORT (SQ) ---
EXAM DESCRIPTION: CT ABDOMEN PELVIS WITHOUT IV CONTRAST COMPLETED DATE/TME: 11/03/2019 00:29 CLINICAL HISTORY: 64 years Female, vomiting Comparison: None. Technique: No contrast. Coronal and sagittal reformat. This exam was performed according to our departmental dose-optimization program, which includes automated exposure control, adjustment of the mA and/or kV according to patient size and/or use of iterative reconstruction technique.[facility]: Dose Right [facility]: CareDose [facility]: Dose Right [facility]: Teradose 4D [facility]: [employer] LIMITATIONS: None Findings: Coronary arterial calcification. Atherosclerotic vascular disease. Colonic diverticulosis. Hepatic steatosis. Likely benign renal cyst(s), not definitively characterized. Bilateral perinephric fat stranding, nonspecific. Minimal reticulonodular opacity of the peripheral right lower lobe and lingula partially imaged probably due to chronic interstitial lung disease. Differential diagnosis includes atypical pneumonitis. 3 cm supraumbilical fat only ventral hernia. Old granulomatous disease. No ascites. No pneumoperitoneum. Cholecystectomy. Normal appendix. No bowel obstruction. No hydronephrosis or hydroureter. No renal/ureteral stone. No evidence of abdominal aortic aneurysm. Unenhanced lower thorax, abdominopelvic structures, and musculoskeleton appear otherwise grossly unremarkable. Impression: 1. Minimal reticulonodular opacity of the peripheral right lower lobe and lingula partially imaged probably due to chronic interstitial lung disease. Differential diagnosis includes atypical pneumonitis. 2. No acute abdominal findings.
[2019-11-03] MEDS ORDERED: ONDANSETRON HCL INJ/PF 4 MG/2 ML SDV IV PRN (03:04)
[2019-11-03] MEDS ORDERED: IPRATROPIUM/ALBUTEROL 0.5-2.5 MG/3 ML AMPUL NEB PRN (03:04)
[2019-11-03] MEDS ORDERED: ACETAMINOPHEN 325 MG TABLET PO PRN (03:04)
[2019-11-03] MEDS ORDERED: MAGNESIUM HYDROXIDE SUSP 30 ML UDCUP PO PRN (03:04)
[2019-11-03] MEDS ORDERED: MAG HYDROX/AL HYDROX/SIMETH SUSP 30 ML UDCUP PO PRN (03:04)
[2019-11-03] MEDS ORDERED: DEXTROSE 50%-WATER 25 GM/50 ML DISP.SYRIN IV PRN ×2 (03:08)
[2019-11-03] MEDS ORDERED: DEXTROSE 40% GEL 15 GM TUBE PO PRN ×2 (03:08)
[2019-11-03] MEDS ORDERED: GLUCAGON,HUMAN RECOMB 1 MG INJ IM PRN (03:08)
[2019-11-03] MEDS ORDERED: NORMAL SALINE 1000 ML 1,000 ML IV SCH ×2 (03:15→08:51)
[2019-11-03 03:52] LABS: BLOOD UREA NITROGEN 14 mg/dL (7-20); CALCIUM 8.3 mg/dL (8.4-10.2); CARBON DIOXIDE 22 mmol/L (22-30); CHLORIDE 83 mmol/L (98-107); GLUCOSE 157 mg/dL (75-110); POTASSIUM 3.3 mmol/L (3.6-5.0)
[2019-11-03 03:54] LABS: ANION GAP 15 (5-19)
[2019-11-03] MEDS: HEPARIN SOD (PORCINE) 5,000 UNIT/ML 1 ML VIAL SUBCUT SCH ×3 (06:24→21:47)
[2019-11-03] MEDS: LEVOFLOXACIN 750 MG/D5W RTU 750 MG/150 ML RTUPB IV SCH (06:24)
--- NOTE | 2019-11-03 07:09 | EKG REPORT ---
SEVERITY:- NORMAL ECG - SINUS RHYTHM : Confirmed by: Heath Mckeon MD 03-Nov-2019 07:08:59
[2019-11-03] MEDS ORDERED: ERGOCALCIFEROL 50000 UNIT PO SCH (07:30)
[2019-11-03] MEDS ORDERED: (PENDING PHARMACY ID) (Insulin Degludec [Tresiba Flextouch U-200] 40 UNIT) SUBCUT SCH (08:00)
[2019-11-03] MEDS ORDERED: SITAGLIPTIN PHOSPHATE PO SCH (08:00)
[2019-11-03 08:15] LABS: HEMATOCRIT 35.1 % (36.0-47.0); MEAN CORPUSCULAR HEMOGLOBIN 25.2 pg (27.0-33.4); MEAN CORPUSCULAR HGB CONC 34.2 g/dL (32.0-36.0); MEAN CORPUSCULAR VOLUME 74 fl (80-97); RED BLOOD COUNT 4.77 10^6/uL (3.72-5.28); RED CELL DISTRIBUTION WIDTH 16.9 % (11.5-14.0); WHITE BLOOD COUNT 16.7 10^3/uL (4.0-10.5)
[2019-11-03] MEDS: INSULIN LISPRO 100 UNIT/ML 3 ML VIAL SUBCUT SCH ×3 (08:24→17:40)
[2019-11-03 08:31] LABS: ABSOLUTE LYMPHOCYTES# (MANUAL) 0.8 10^3/uL (0.5-4.7); ABSOLUTE MONOCYTES # (MANUAL) 0.5 10^3/uL (0.1-1.4); BAND NEUTROPHILS % (MANUAL) 2 % (3-5); BASOPHILS % (MANUAL) 0 % (0-2); EOSINOPHILS % (MANUAL) 0 % (0-6); LYMPHOCYTES % (MANUAL) 5 % (13-45); MONOCYTES % (MANUAL) 3 % (3-13); SEGMENTED NEUTROPHILS % (MAN) 90 % (42-78); TOTAL CELLS COUNTED 100
[2019-11-03 08:33] LABS: ANISOCYTOSIS 1+
[2019-11-03 08:35] LABS: HYPOCHROMASIA SLIGHT; OVALOCYTES 1+; POIKILOCYTOSIS 1+; TEAR DROP CELLS SLIGHT
[2019-11-03 08:36] LABS: PLATELET CLUMPS PRESENT
[2019-11-03 08:37] LABS: PLATELET COMMENT ADEQUATE; PLATELET COUNT 234 10^3/uL (150-450)
--- NOTE | 2019-11-03 08:58 | PDOC PROGRESS REPORT ---
Subjective Progress Note for:: 11/03/19 Subjective:: 64 year old female patient with a PMHx of diabetes, HTN, HLD, and CKD brought in by EMS presents to the ED today with complaints of nausea and vomiting for the past x5 days. Patients states that her blood pressure medication was changed x6 days ago by her PCP Dr. Schwartz from Valsartan to Losartan and that she has been feeling nauseous since. She reports that she is very "sensitive" when her blood pressure medications are changed. She notes poor appetite/fluid intake, sinus congestion that started today, low back pain, LE pain, and generalized weakness. Denies chest pain, shortness of breath, fever, or any urinary symptoms. 11/03/19-on examination patient is comfortable in the bed communicating well. Denies any problems. Serum sodium improved to 119.7. Presently on normal saline at 200 cc/h to decrease the fluids to 75 cc/h. Patient is on hydrochlorothiazide which is on hold. Reason For Visit: HYPONATREMIA,PYELONEPHRITIS Physical Exam Vital Signs: Temp Pulse Resp BP Pulse Ox 97.2 F 83 16 148/47 H 95 11/03/19 04:12 11/03/19 05:07 11/03/19 04:12 11/03/19 04:12 11/03/19 05:00 Intake & Output 11/02/19 11/03/19 11/04/19 06:59 06:59 06:59 Intake Total 1370 Balance 1370 Weight 84.5 kg General appearance: PRESENT: no acute distress, obese Head exam: PRESENT: atraumatic Eye exam: PRESENT: PERRLA Teeth exam: PRESENT: poor dentation Neck exam: ABSENT: carotid bruit, JVD, lymphadenopathy, thyromegaly Respiratory exam: PRESENT: decreased breath sounds Cardiovascular exam: PRESENT: RRR. ABSENT: diastolic murmur, rubs, systolic murmur Pulses: PRESENT: normal dorsalis pedis pul GI/Abdominal exam: PRESENT: normal bowel sounds, soft. ABSENT: distended, guarding, mass, organolmegaly, rebound, tenderness Rectal exam: PRESENT: deferred Extremities exam: PRESENT: full ROM. ABSENT: calf tenderness, clubbing, pedal edema Neurological exam: PRESENT: alert, awake, oriented to person, oriented to place, oriented to time, oriented to situation, CN II-XII grossly intact. ABSENT: motor sensory deficit Psychiatric exam: PRESENT: appropriate affect, normal mood. ABSENT: homicidal ideation, suicidal ideation Results Laboratory Results: 11/03/19 03:19 11/03/19 03:19 11/02/19 11/02/19 11/02/19 21:00 21:00 21:00 WBC 15.1 H RBC 5.04 Hgb 12.8 Hct 37.6 MCV 75 L MCH 25.3 L MCHC 34.0 RDW 17.0 H Plt Count 265 Seg Neutrophils % Not Reportable Sodium 118.8 L* Potassium 3.5 L Chloride 79 L Carbon Dioxide 26 Anion Gap 14 BUN 19 Creatinine 1.05 Est GFR ( Amer) > 60 Glucose 130 H Lactic Acid Calcium 9.2 Magnesium Total Bilirubin 1.3 AST 33 Alkaline Phosphatase 73 Total Protein 7.8 Albumin 4.6 Lipase 65.4 TSH Urine Color Urine Appearance Urine pH Ur Specific [place] Urine Protein Urine Glucose (UA) Urine Ketones Urine Blood Urine Nitrite Ur Leukocyte Esterase Urine WBC (Auto) Urine RBC (Auto) 11/02/19 11/02/19 11/03/19 21:00 23:53 00:41 WBC RBC Hgb Hct MCV MCH MCHC RDW Plt Count Seg Neutrophils % Sodium Potassium Chloride Carbon Dioxide Anion Gap BUN Creatinine Est GFR ( Amer) Glucose Lactic Acid 0.7 Calcium Magnesium 1.2 L* Total Bilirubin AST Alkaline Phosphatase Total Protein Albumin Lipase TSH Urine Color YELLOW Urine Appearance CLEAR Urine pH 6.0 Ur Specific [place] 1.010 Urine Protein NEGATIVE Urine Glucose (UA) NEGATIVE Urine Ketones TRACE H Urine Blood NEGATIVE Urine Nitrite POSITIVE H Ur Leukocyte Esterase NEGATIVE Urine WBC (Auto) 1 Urine RBC (Auto) 0 11/03/19 11/03/19 11/03/19 03:19 03:19 03:19 WBC 16.7 H RBC 4.77 Hgb 12.0 Hct 35.1 L MCV 74 L MCH 25.2 L MCHC 34.2 RDW 16.9 H Plt Count 234 Seg Neutrophils % Not Reportable Sodium 119.7 L* Potassium 3.3 L Chloride 83 L Carbon Dioxide 22 Anion Gap 15 BUN 14 Creatinine 0.85 Est GFR ( Amer) > 60 Glucose 157 H Lactic Acid Calcium 8.3 L Magnesium 1.9 Total Bilirubin AST Alkaline Phosphatase Total Protein Albumin Lipase TSH 1.01 Urine Color Urine Appearance Urine pH Ur Specific [place] Urine Protein Urine Glucose (UA) Urine Ketones Urine Blood Urine Nitrite Ur Leukocyte Esterase Urine WBC (Auto) Urine RBC (Auto) 11/03/19 03:19 Troponin I < 0.012 Impressions: Chest X-Ray 11/02/19 22:39 IMPRESSION: No evidence of active intrathoracic disease. Assessment and Plan - Diagnosis (1) Hyponatremia Is this a current diagnosis for this admission?: Yes Plan: 11/03/2019-patient came in with serum sodium of 118 and a with IV fluids to improved to 119.7. Hyponatremia may be secondary to hydrochlorothiazide. Plan is to decrease the IV fluids to 75 cc/h. to reCheck the labs tomorrow. (2) UTI (urinary tract infection) Is this a current diagnosis for this admission?: Yes Plan: 11/03/2019-patient came in with UTI urine cultures are pending presently on IV antibiotic therapy afebrile. Plan is to continue the present management at this time. (3) Hypomagnesemia Is this a current diagnosis for this admission?: Yes Plan: 11/03/2019-patient came in with a serum magnesium is 1.3 with IV supplementation improved to 1.9. (4) Hypovolemia Is this a current diagnosis for this admission?: Yes Plan: 11/03/2019-patient came in with hypovolemia and looks dehydrated received IV fluids at the time of my examination patient looks euvolemic with blood pressure of 148/87. IV fluid rate is decreased to 75 cc/h. (5) Diabetes Qualifiers: Diabetes mellitus type: type 2 Is this a current diagnosis for this admission?: No Plan: 11/03/2019-latest blood sugar is 197. Hemoglobin A1c 6.8. Plan is to continue insulin sliding scale before meals and at bedtime. Diet exercise weight loss lifestyle modifications discussed with the patient.
[2019-11-03] MEDS ORDERED: POTASSIUM CHLORIDE 10 MEQ TABLET.ER PO ONE (09:30)
[2019-11-03] MEDS ORDERED: TOFACITINIB CITRATE PO SCH (10:00)
[2019-11-03] MEDS: DOCUSATE SODIUM 100 MG CAPSULE PO SCH ×2 (10:04→17:40)
[2019-11-03] MEDS: HYDROCODONE/ACETAMINOPHEN 10-325 MG TABLET PO PRN (10:04)
[2019-11-03] MEDS: ALPRAZOLAM 0.25 MG TABLET PO PRN (10:04)
[2019-11-03] MEDS: INSULIN GLARGINE,HUM.REC.ANLOG 1,000 UNIT/10 ML VIAL SUBCUT SCH (10:36)
[2019-11-03] MEDS: SITAGLIPTIN PHOSPHATE 50 MG TABLET PO SCH (12:11)
[2019-11-03] MEDS: FLUTICASONE NASAL SPRAY 50 MCG/SPRY 120 SPRAY/16 GM NASL SCH (12:12)
[2019-11-03] MEDS: LEVOTHYROXINE SODIUM 0.1 MG TABLET PO SCH (12:12)
[2019-11-03] MEDS: ATORVASTATIN CALCIUM 10 MG TABLET PO SCH (21:45)
[2019-11-03] MEDS: ZOLPIDEM TARTRATE 5 MG TABLET PO SCH (21:46)
[2019-11-03] MEDS: ATENOLOL 50 MG TABLET PO SCH (21:46)
[2019-11-03] MEDS: FENOFIBRATE NANOCRYSTALLIZED 145 MG TABLET PO SCH (21:48)
[2019-11-03] MEDS ORDERED: RABEPRAZOLE SODIUM PO SCH (22:00)
[2019-11-03] MEDS ORDERED: (PENDING PHARMACY ID) (Fenofibric Acid (Choline) [Trilipix] 135 MG) PO SCH (22:00)
[2019-11-03] MEDS ORDERED: PRAVASTATIN SODIUM PO SCH (22:00)
[2019-11-03] MEDS ORDERED: ATENOLOL PO SCH (22:00)
[2019-11-03] MEDS ORDERED: PANTOPRAZOLE SODIUM 20 MG TABLET.DR PO SCH (22:00)
[2019-11-04] MEDS: LEVOFLOXACIN 750 MG/D5W RTU 750 MG/150 ML RTUPB IV SCH (05:26)
[2019-11-04] MEDS: LEVOTHYROXINE SODIUM 0.1 MG TABLET PO SCH (05:26)
[2019-11-04] MEDS: HEPARIN SOD (PORCINE) 5,000 UNIT/ML 1 ML VIAL SUBCUT SCH ×3 (05:39→21:27)
[2019-11-04 06:20] LABS: HEMATOCRIT 32.8 % (36.0-47.0); HEMOGLOBIN 11.3 g/dL (12.0-15.5); MEAN CORPUSCULAR HEMOGLOBIN 25.3 pg (27.0-33.4); MEAN CORPUSCULAR HGB CONC 34.3 g/dL (32.0-36.0); MEAN CORPUSCULAR VOLUME 74 fl (80-97); PLATELET COUNT 226 10^3/uL (150-450); RED BLOOD COUNT 4.45 10^6/uL (3.72-5.28); RED CELL DISTRIBUTION WIDTH 16.9 % (11.5-14.0); WHITE BLOOD COUNT 21.2 10^3/uL (4.0-10.5)
[2019-11-04 06:40] LABS: ABSOLUTE LYMPHOCYTES# (MANUAL) 0.6 10^3/uL (0.5-4.7); ABSOLUTE MONOCYTES # (MANUAL) 0.6 10^3/uL (0.1-1.4); BAND NEUTROPHILS % (MANUAL) 4 % (3-5); BASOPHILS % (MANUAL) 0 % (0-2); EOSINOPHILS % (MANUAL) 0 % (0-6); LYMPHOCYTES % (MANUAL) 2 % (13-45); MONOCYTES % (MANUAL) 3 % (3-13); SEGMENTED NEUTROPHILS % (MAN) 90 % (42-78); TOTAL CELLS COUNTED 100
[2019-11-04 06:41] LABS: HYPERSEGMENTED NEUTROPHILS PRESENT; PLATELET CLUMPS PRESENT; PLATELET COMMENT ADEQUATE
[2019-11-04 06:42] LABS: OVALOCYTES SLIGHT; POIKILOCYTOSIS SLIGHT
--- NOTE | 2019-11-04 06:48 | PDOC H&P ---
History of Present Illness Admission Date/PCP: 11/03/19 03:17 ANDRY PANTOJA MD Patient complains of: Nausea and vomiting History of Present Illness: WANG CONTEH is a 64 year old female with a past medical history of rheumatoid arthritis, diabetes and hypertension. She presents with 5 days of nausea and vomiting. In the emergency department she is found to have hyponatremia, hypomagnesemia and a CT abdomen pelvis with perinephric stranding without abscess or hydronephrosis. She receives IV fluid challenge, empiric antibiotics, symptomatic management and referred to the hospitalist for admission. Past Medical History Cardiac Medical History: Reports: Coronary Artery Disease, Hyperlipidema, Hypertension Denies: Myocardial Infarction Pulmonary Medical History: Reports: Asthma, Bronchitis, Pneumonia Denies: Chronic Obstructive Pulmonary Disease (COPD) Neurological Medical History: Denies: Seizures Endocrine Medical History: Reports: Diabetes Mellitus Type 2 Musculoskeltal Medical History: Reports: Arthritis Psychiatric Medical History: Denies: Depression Hematology: Reports: Anemia Past Surgical History Past Surgical History: Reports: Cholecystectomy, Orthopedic Surgery Denies: Hysterectomy Social History Information Source: Patient Lives with: Family Smoking Status: Former Smoker Electronic Cigarette use?: No Number of Years Smokin Frequency of Alcohol Use: None Hx Recreational Drug Use: No Drugs: None Hx Prescription Drug Abuse: No - Advance Directive Resuscitation Status: Full Code Family History Family History: Hypertension Parental Family History Reviewed: Yes Children Family History Reviewed: Yes Sibling(s) Family History Reviewed.: Yes Medication/Allergy Home Medications: Atenolol 100 mg PO QHS 01/07/17 Clonidine [Catapres-Tts 3 (0.3 mg/24 Hr) Transderm Patch] 2 patch TOP CARTER@1000 01/07/17 Fluticasone Propionate [Flonase Nasal [place] 50 Mcg/[place] 16 gm] 1 dose IN DAILY 01/07/17 Hydrochlorothiazide 1 tab PO QAM 01/07/17 Hydrocodone/Acetaminophen [Hydrocodone-Acetamin 10-325 mg] 1 tab PO BID PRN 01/07/17 Insulin Degludec [Tresiba Flextouch U-200] 40 unit SQ QAM 01/07/17 Levothyroxine Sodium 100 mcg PO DAILY 01/07/17 Metformin HCl [Metformin ER Gastric] 1 tab PO QHS 01/07/17 Pravastatin Sodium 1 tab PO QHS 01/07/17 Prednisone 2 tab PO BID PRN 01/07/17 Rabeprazole Sodium [Aciphex] 1 tab PO QHS 01/07/17 Sitagliptin Phosphate [Januvia] 1 tab PO QAM 01/07/17 Tofacitinib Citrate [Xeljanz] 1 tab PO BID 01/07/17 Eszopiclone [Lunesta] 3 mg PO QHS 03/30/17 Fenofibric Acid (Choline) [Trilipix] 135 mg PO QHS 03/30/17 Cholecalciferol (Vitamin D3) [Vitamin D3] 50 mcg PO SA@1000 11/03/19 Olmesartan Medoxomil 40 mg PO DAILY 11/03/19 Telmisartan 80 mg PO DAILY 11/03/19 Ubidecarenone [Coq10] 200 mg PO DAILY 11/03/19 Allergies/Adverse Reactions: amlodipine besylate [From [facility]] Allergy (Intermediate, Verified 03/31/17 07:35) Jaundice Sulfa (Sulfonamide Antibiotics) Allergy (Intermediate, Verified 03/31/17 07:35) Jaundice Review of Systems Constitutional: ABSENT: chills, fever(s), headache(s), weight gain, weight loss Eyes: ABSENT: visual disturbances Ears: ABSENT: hearing changes Cardiovascular: ABSENT: chest pain, dyspnea on exertion, edema, orthropnea, palpitations Respiratory: ABSENT: cough, hemoptysis Gastrointestinal: PRESENT: as per HPI, abdominal pain, nausea, vomiting. ABSENT: constipation, diarrhea, hematemesis, hematochezia Genitourinary: ABSENT: dysuria, hematuria Musculoskeletal: ABSENT: joint swelling Integumentary: ABSENT: rash, wounds Neurological: ABSENT: abnormal gait, abnormal speech, confusion, dizziness, focal weakness, syncope Psychiatric: ABSENT: anxiety, depression, homidical ideation, suicidal ideation Endocrine: ABSENT: cold intolerance, heat intolerance, polydipsia, polyuria Hematologic/Lymphatic: ABSENT: easy bleeding, easy bruising Physical Exam Vital Signs: Temp Pulse Resp BP Pulse Ox 97.6 F 82 16 141/68 H 95 11/03/19 23:18 11/04/19 02:00 11/03/19 23:18 11/03/19 23:18 11/03/19 23:18 Intake & Output 11/02/19 11/03/19 11/04/19 11:59 11:59 11:59 Intake Total 1520 1251 Balance 1520 1251 Weight 84.6 kg 85.2 kg General appearance: PRESENT: no acute distress, well-developed, well-nourished Head exam: PRESENT: atraumatic, normocephalic Eye exam: PRESENT: conjunctiva pink, EOMI, PERRLA. ABSENT: scleral icterus Ear exam: PRESENT: normal external ear exam Mouth exam: PRESENT: moist, tongue midline Neck exam: ABSENT: carotid bruit, JVD, lymphadenopathy, thyromegaly Respiratory exam: PRESENT: clear to auscultation leroa. ABSENT: rales, rhonchi, wheezes Cardiovascular exam: PRESENT: RRR. ABSENT: diastolic murmur, rubs, systolic murmur Pulses: PRESENT: normal dorsalis pedis pul Vascular exam: PRESENT: normal capillary refill GI/Abdominal exam: PRESENT: normal bowel sounds, soft. ABSENT: distended, guarding, mass, organolmegaly, rebound, tenderness Rectal exam: PRESENT: deferred Extremities exam: PRESENT: full ROM. ABSENT: calf tenderness, clubbing, pedal edema Neurological exam: PRESENT: alert, awake, oriented to person, oriented to place, oriented to time, oriented to situation, CN II-XII grossly intact. ABSENT: motor sensory deficit Psychiatric exam: PRESENT: appropriate affect, normal mood. ABSENT: homicidal ideation, suicidal ideation Skin exam: PRESENT: dry, intact, warm. ABSENT: cyanosis, rash Results Laboratory Results: 11/04/19 06:00 11/03/19 03:19 11/03/19 11/04/19 03:19 06:00 WBC 16.7 H 21.2 H RBC 4.77 4.45 Hgb 12.0 11.3 L Hct 35.1 L 32.8 L MCV 74 L 74 L MCH 25.2 L 25.3 L MCHC 34.2 34.3 RDW 16.9 H 16.9 H Plt Count 234 226 Seg Neutrophils % Not Reportable Not Reportable 11/03/19 03:19 Troponin I < 0.012 Impressions: Chest X-Ray 11/02/19 22:39 IMPRESSION: No evidence of active intrathoracic disease. Assessment and Plan - Diagnosis (1) UTI (urinary tract infection) Is this a current diagnosis for this admission?: Yes Plan: Complicated by violet Anne, no hydronephrosis, empiric antibiotic, follow-up blood culture and CBC (2) Hypomagnesemia Is this a current diagnosis for this admission?: Yes Plan: Secondary to nausea and vomiting, repletion and reevaluation. (3) Hyponatremia Is this a current diagnosis for this admission?: Yes Plan: Secondary to poor p.o. intake nausea vomiting. Normal saline challenge, follow- up serial chemistry. (4) Hypovolemia Is this a current diagnosis for this admission?: Yes Plan: IV fluid resuscitation. (5) Diabetes Qualifiers: Diabetes mellitus type: type 2 Is this a current diagnosis for this admission?: No Plan: Humalog sliding scale as needed. - Time Time Spent with patient: 25-34 minutes - Inpatient Certification Medical Necessity: Need Close Monitoring Due to Risk of Patient Decompensation
[2019-11-04 08:14] LABS: ALBUMIN 3.4 g/dL (3.5-5.0); ALKALINE PHOSPHATASE 101 U/L (38-126); ANION GAP 14 (5-19); ASPARTATE AMINO TRANSFERASE 41 U/L (14-36); BILIRUBIN,DIRECT 0.4 mg/dL (0.0-0.4); BLOOD UREA NITROGEN 10 mg/dL (7-20); CALCIUM 7.9 mg/dL (8.4-10.2); CARBON DIOXIDE 21 mmol/L (22-30); CHLORIDE 81 mmol/L (98-107); GLUCOSE 115 mg/dL (75-110); TOTAL PROTEIN 6.4 g/dL (6.3-8.2)
[2019-11-04] MEDS: INSULIN LISPRO 100 UNIT/ML 3 ML VIAL SUBCUT SCH ×3 (08:16→17:12)
[2019-11-04] MEDS ORDERED: UBIDECARENONE 200 MG PO SCH (10:00)
[2019-11-04] MEDS: SITAGLIPTIN PHOSPHATE 50 MG TABLET PO SCH (10:13)
[2019-11-04] MEDS: FLUTICASONE NASAL SPRAY 50 MCG/SPRY 120 SPRAY/16 GM NASL SCH (10:13)
[2019-11-04] MEDS: DOCUSATE SODIUM 100 MG CAPSULE PO SCH ×2 (10:13→17:47)
[2019-11-04] MEDS: INSULIN GLARGINE,HUM.REC.ANLOG 1,000 UNIT/10 ML VIAL SUBCUT SCH (10:14)
--- NOTE | 2019-11-04 10:21 | PDOC PROGRESS REPORT ---
Subjective Progress Note for:: 11/04/19 Subjective:: 64 year old female patient with a PMHx of diabetes, HTN, HLD, and CKD brought in by EMS presents to the ED today with complaints of nausea and vomiting for the past x5 days. Patients states that her blood pressure medication was changed x6 days ago by her PCP Dr. Schwartz from Valsartan to Losartan and that she has been feeling nauseous since. She reports that she is very "sensitive" when her blood pressure medications are changed. She notes poor appetite/fluid intake, sinus congestion that started today, low back pain, LE pain, and generalized weakness. Denies chest pain, shortness of breath, fever, or any urinary symptoms. 11/03/19-on examination patient is comfortable in the bed communicating well. Denies any problems. Serum sodium improved to 119.7. Presently on normal saline at 200 cc/h to decrease the fluids to 75 cc/h. Patient is on hydrochlorothiazide which is on hold. 11/04/2019-no acute events in the last 24 hours. Alert awake communicating well. Expressing desire to go home. But the serum sodium levels dropped to 115.9. Denies any problems. Patient receiving normal saline 75 cc/h at the time of admission received 2 L of normal saline until yesterday morning she received normal saline at 200 cc/h. Serum osmolality, urine osmolality, urine lites are requested. Uric acid level is requested. Patient denies any history of cancer. Patient is on telmisartan, hydrochlorothiazide those medications are on hold. Consultation with Dr. Chau is requested. Reason For Visit: HYPONATREMIA,PYELONEPHRITIS Physical Exam Vital Signs: Temp Pulse Resp BP Pulse Ox 97.8 F 81 14 141/60 H 100 11/04/19 07:35 11/04/19 08:34 11/04/19 08:34 11/04/19 07:35 11/04/19 08:34 Intake & Output 11/03/19 11/04/19 11/05/19 06:59 06:59 06:59 Intake Total 1370 1551 Balance 1370 1551 Weight 84.5 kg 85.2 kg General appearance: PRESENT: no acute distress, well-developed Head exam: PRESENT: atraumatic Eye exam: PRESENT: PERRLA Mouth exam: PRESENT: moist, tongue midline Teeth exam: PRESENT: poor dentation Neck exam: ABSENT: carotid bruit, JVD, lymphadenopathy, thyromegaly Respiratory exam: PRESENT: decreased breath sounds Cardiovascular exam: PRESENT: RRR. ABSENT: diastolic murmur, rubs, systolic murmur GI/Abdominal exam: PRESENT: normal bowel sounds, soft. ABSENT: distended, guarding, mass, organolmegaly, rebound, tenderness Rectal exam: PRESENT: deferred Extremities exam: PRESENT: full ROM. ABSENT: calf tenderness, clubbing, pedal edema Neurological exam: PRESENT: alert, awake, oriented to person, oriented to place, oriented to time, oriented to situation, CN II-XII grossly intact. ABSENT: motor sensory deficit Psychiatric exam: PRESENT: appropriate affect, normal mood. ABSENT: homicidal ideation, suicidal ideation Results Laboratory Results: 11/04/19 06:00 11/04/19 05:20 11/04/19 11/04/19 11/04/19 05:20 05:20 05:20 WBC RBC Hgb Hct MCV MCH MCHC RDW Plt Count Seg Neutrophils % Sodium 115.9 L* Potassium 4.0 Chloride 81 L Carbon Dioxide 21 L Anion Gap 14 BUN 10 Creatinine 0.82 Est GFR ( Amer) > 60 Glucose 115 H Serum Osmolality 237 L Uric Acid 2.3 L Calcium 7.9 L Total Bilirubin 1.0 AST 41 H Alkaline Phosphatase 101 Total Protein 6.4 Albumin 3.4 L 11/04/19 06:00 WBC 21.2 H RBC 4.45 Hgb 11.3 L Hct 32.8 L MCV 74 L MCH 25.3 L MCHC 34.3 RDW 16.9 H Plt Count 226 Seg Neutrophils % Not Reportable Sodium Potassium Chloride Carbon Dioxide Anion Gap BUN Creatinine Est GFR ( Amer) Glucose Serum Osmolality Uric Acid Calcium Total Bilirubin AST Alkaline Phosphatase Total Protein Albumin 11/03/19 03:19 Troponin I < 0.012 Impressions: Chest X-Ray 11/02/19 22:39 IMPRESSION: No evidence of active intrathoracic disease. Assessment and Plan - Diagnosis (1) Hyponatremia Is this a current diagnosis for this admission?: Yes Plan: Secondary to poor p.o. intake nausea vomiting. Normal saline challenge, follow-up serial chemistry. 11/04/2019-serum sodium levels dropped to 115.9. Plan is to continue IV fluids in my opinion patient does not need any 3% ns at this time. Consultation with nephrology is requested. Serum osmolality, urine osmolality, urine lites are requested. Uric acid level is requested. (2) UTI (urinary tract infection) Is this a current diagnosis for this admission?: Yes Plan: Complicated by violet Anne, no hydronephrosis, empiric antibiotic, follow-up blood culture and CBC (3) Hypomagnesemia Is this a current diagnosis for this admission?: Yes Plan: Secondary to nausea and vomiting, repletion and reevaluation. (4) Hypovolemia Is this a current diagnosis for this admission?: Yes Plan: IV fluid resuscitation. 11/04/19-on examination patient looks euvolemic blood pressure is 140/68. Stable. (5) Diabetes Qualifiers: Diabetes mellitus type: type 2 Is this a current diagnosis for this admission?: No Plan: Humalog sliding scale as needed. 11/04/2019-hemoglobin A1c 6.8, patient is on insulin sliding scale at this time. Diet exercise weight loss lifestyle modifications discussed with the patient.
[2019-11-04] MEDS ORDERED: NORMAL SALINE 1000 ML 1,000 ML IV PRN (10:52)
[2019-11-04 12:08] LABS: URINE CREATININE 136.5 mg/dL (15-278); URINE PROTEIN 43.8 mg/dL (<12)
[2019-11-04 14:22] LABS: ALBUMIN 3.2 g/dL (3.5-5.0); ALKALINE PHOSPHATASE 105 U/L (38-126); ASPARTATE AMINO TRANSFERASE 31 U/L (14-36); BILIRUBIN,DIRECT 0.3 mg/dL (0.0-0.4); BILIRUBIN,TOTAL 0.9 mg/dL (0.2-1.3); BLOOD UREA NITROGEN 10 mg/dL (7-20); CALCIUM 7.9 mg/dL (8.4-10.2); CARBON DIOXIDE 20 mmol/L (22-30); CHLORIDE 81 mmol/L (98-107); GLUCOSE 142 mg/dL (75-110); TOTAL PROTEIN 5.7 g/dL (6.3-8.2)
[2019-11-04 14:24] LABS: ANION GAP 12 (5-19)
--- NOTE | 2019-11-04 14:39 | PDOC CONSULTATION ---
Consultation Consult Date: 11/04/19 Provider Consulted: JAQUELIN RIVERA Consult reason:: Hyponatremia History of Present Illness Admission Date/PCP: 11/03/19 03:17 ANDRY PANTOJA MD History of Present Illness: WANG CONTEH is a 64 year old female with history of coronary artery disease, hyperlipidemia, hypertension, diabetes mellitus type 2, hypothyroidism and diabetes mellitus admitted early yesterday presenting with 5-day history of persistent nausea and vomiting with poor oral intake. Patient states that throughout the 5 days she really has not been eating liquid nor solid because she keeps vomiting them up. She had some medication changes for the last 5 days. She said she took olmesartan for 3 days and then later on changed to Micardis for a day and the medications made her nauseated. Her appetite is not that great at this time. She reports some sinus congestion, weakness and low back pain. There is no disorientation or any episodes of seizures. Patient admits feeling weak and has not been able to walk. Upon presentation patient had an initial sodium level of 118, magnesium of 1.2 and low potassium of 3.3. She was also found to have positive nitrite in the urine for consideration of urinary tract infection. Patient has never had problems with hyponatremia in the past. She was on hydrochlorothiazide for her blood pressure. Her chest x- ray was negative. Currently she is on liquid diet. She said she only drink maybe half of her water bottle a day which is approximately 500 mL along with other liquids that she is being given for liquid diet including coffee and diet Pepsi. Currently the patient is mentating very well. Since admission the patient was at least given 2+ liters of IV fluids. She is a still on normal saline at 75 mL an hour. Her sodium level initially improved to 119 but then today it went back down to 115. Her serum osmolality is low at 23 7, her uric acid is also low at 2.3 and TSH is acceptable at 1.01. She otherwise does not have any other symptoms. Past Medical History Cardiac Medical History: Reports: Coronary Artery Disease, Hyperlipidemia, Hypertension-primary Pulmonary Medical History: Reports: Asthma, Bronchitis, Pneumonia Endocrine Medical History: Reports: Diabetes Mellitus Type 2, Hypothyroidism Musculoskeltal Medical History: Reports: Arthritis, Rheumatoid Arthritis Psychiatric Medical History: Denies: Depression Past Surgical History Past Surgical History: Reports: Cholecystectomy Social History Information Source: Patient Lives with: Family Smoking Status: Former Smoker Electronic Cigarette use?: No Number of Years Smokin Frequency of Alcohol Use: None Hx Recreational Drug Use: No Drugs: None Hx Prescription Drug Abuse: No - Advance Directive Resuscitation Status: Full Code Family History Family History: CAD - Father, Hypertension - Father Parental Family History Reviewed: Yes Children Family History Reviewed: Yes Sibling(s) Family History Reviewed.: Yes Medication/Allergy Home Medications: Atenolol 100 mg PO QHS 01/07/17 Clonidine [Catapres-Tts 3 (0.3 mg/24 Hr) Transderm Patch] 2 patch TOP CARTER@1000 01/07/17 Fluticasone Propionate [Flonase Nasal [place] 50 Mcg/[place] 16 gm] 1 dose IN DAILY 01/07/17 Hydrochlorothiazide 1 tab PO QAM 01/07/17 Hydrocodone/Acetaminophen [Hydrocodone-Acetamin 10-325 mg] 1 tab PO BID PRN 01/07/17 Insulin Degludec [Tresiba Flextouch U-200] 40 unit SQ QAM 01/07/17 Levothyroxine Sodium 100 mcg PO DAILY 01/07/17 Metformin HCl [Metformin ER Gastric] 1 tab PO QHS 01/07/17 Pravastatin Sodium 1 tab PO QHS 01/07/17 Prednisone 2 tab PO BID PRN 01/07/17 Rabeprazole Sodium [Aciphex] 1 tab PO QHS 01/07/17 Sitagliptin Phosphate [Januvia] 1 tab PO QAM 01/07/17 Tofacitinib Citrate [Xeljanz] 1 tab PO BID 01/07/17 Eszopiclone [Lunesta] 3 mg PO QHS 03/30/17 Fenofibric Acid (Choline) [Trilipix] 135 mg PO QHS 03/30/17 Olmesartan Medoxomil 40 mg PO DAILY 11/03/19 Telmisartan 80 mg PO DAILY 11/03/19 Ubidecarenone [Coq10] 200 mg PO DAILY 11/03/19 Cholecalciferol (Vitamin D3) [Weekly-D] 1,250 mcg PO SA@1000 11/04/19 Allergies/Adverse Reactions: amlodipine besylate [From [facility]] Allergy (Intermediate, Verified 03/31/17 07:35) Jaundice Sulfa (Sulfonamide Antibiotics) Allergy (Intermediate, Verified 03/31/17 07:35) Jaundice Review of Systems All systems: reviewed and no additional remarkable complaints except as stated Review of Systems: Constitutional: ABSENT: chills, fever(s), headache(s), weight gain, weight loss; decreased appetite and admits weakness Eyes: ABSENT: visual disturbances Ears: ABSENT: hearing changes Cardiovascular: ABSENT: chest pain, dyspnea on exertion, edema, orthropnea, palpitations Respiratory: ABSENT: cough, dyspnea, hemoptysis Gastrointestinal: ABSENT: abdominal pain, constipation, diarrhea, hematemesis, hematochezia; positive nausea, and vomiting Genitourinary: ABSENT: dysuria, hematuria Musculoskeletal: ABSENT: joint swelling, low back pain Integumentary: ABSENT: rash, wounds Neurological: ABSENT: abnormal gait, abnormal speech, confusion, dizziness, focal weakness, numbness, syncope Psychiatric: ABSENT: anxiety, depression Endocrine: ABSENT: cold intolerance, heat intolerance, polydipsia, polyuria Hematologic/Lymphatic: ABSENT: easy bleeding, easy bruising, lymphadenopathy Physical Exam Vital Signs: Temp Pulse Resp BP Pulse Ox 97.8 F 81 14 141/60 H 100 11/04/19 07:35 11/04/19 08:34 11/04/19 08:34 11/04/19 07:35 11/04/19 08:34 Intake & Output 11/03/19 11/04/19 11/05/19 06:59 06:59 06:59 Intake Total 1370 1551 Balance 1370 1551 Weight 84.5 kg 85.2 kg Exam: General appearance: No acute distress, cooperative, well-developed, well- nourished Head exam: PRESENT: atraumatic, normocephalic Eye exam: PRESENT: Conjunctiva slightly pale, EOMI, PERRLA. ABSENT: conjunctival injection, scleral icterus Mouth exam: PRESENT: moist, neck supple, tongue midline Neck exam: PRESENT: full ROM. ABSENT: carotid bruit, JVD, lymphadenopathy, thyromegaly Respiratory exam: PRESENT: clear to auscultation bilaterally. ABSENT: rales, rhonchi, stridor, wheezes Cardiovascular exam: PRESENT: RRR, +S1, +S2. ABSENT: systolic murmur Pulses: PRESENT: normal radial pulses, normal dorsalis pedis pulses GI/Abdominal exam: PRESENT: normal bowel sounds, soft. ABSENT: guarding, mass, tenderness Rectal exam: Deferred Extremities exam: PRESENT: full ROM. ABSENT: calf tenderness, pedal edema Musculoskeletal: PRESENT: full ROM. ABSENT: deformity Neurological exam: PRESENT: alert, Awake, Oriented to person, Oriented to place, Oriented to time, reflexes normal, CN II-XII grossly intact. ABSENT: motor sensory deficit Psychiatric exam: PRESENT: appropriate affect, normal mood. ABSENT: homicidal ideation, suicidal ideation Skin exam: PRESENT: intact, dry, warm. ABSENT: rash Results Laboratory Results: 11/04/19 06:00 11/04/19 05:20 11/04/19 11/04/19 11/04/19 05:20 05:20 05:20 WBC RBC Hgb Hct MCV MCH MCHC RDW Plt Count Seg Neutrophils % Sodium 115.9 L* Potassium 4.0 Chloride 81 L Carbon Dioxide 21 L Anion Gap 14 BUN 10 Creatinine 0.82 Est GFR ( Amer) > 60 Glucose 115 H Serum Osmolality 237 L Uric Acid 2.3 L Calcium 7.9 L Total Bilirubin 1.0 AST 41 H Alkaline Phosphatase 101 Total Protein 6.4 Albumin 3.4 L Urine Osmolality 11/04/19 11/04/19 06:00 09:27 WBC 21.2 H RBC 4.45 Hgb 11.3 L Hct 32.8 L MCV 74 L MCH 25.3 L MCHC 34.3 RDW 16.9 H Plt Count 226 Seg Neutrophils % Not Reportable Sodium Potassium Chloride Carbon Dioxide Anion Gap BUN Creatinine Est GFR ( Amer) Glucose Serum Osmolality Uric Acid Calcium Total Bilirubin AST Alkaline Phosphatase Total Protein Albumin Urine Osmolality 548 11/03/19 03:19 Troponin I < 0.012 Impressions: Chest X-Ray 11/02/19 22:39 IMPRESSION: No evidence of active intrathoracic disease. Assessment & Plan - Diagnosis (1) Hyponatremia Is this a current diagnosis for this admission?: Yes Plan: Differential diagnosis could be secondary to hypovolemia due to 5-day history of GI symptoms vs. SIADH particularly with low BUN and low uric acid. I will increase the patient's normal saline at this time 150 mL an hour and monitor the sodium level serially. If the patient's sodium level continues to be low, she might need to be given 3% normal saline but that means patient needs to be transferred to the ICU for that. The patient looks clinically well and asymptomatic so we will give the normal saline a chance to work. Tolvaptan is another option if the patient becomes euvolemic. I will check the patient's urine osmolality, urine sodium and cortisol level for further work-up. Needs to correct magnesium level. Agree with holding hydrochlorothiazide. I also recommended the patient started on some soft diet. May give the patient anti-emetics prior to meals. Monitor sodium levels serially. (2) Hypomagnesemia Is this a current diagnosis for this admission?: Yes Plan: Replace as needed. (3) Hypovolemia Is this a current diagnosis for this admission?: Yes Plan: Increase normal saline at 150 mls an hour. (4) UTI (urinary tract infection) Is this a current diagnosis for this admission?: Yes Plan: Although the patient is nitrite in the urine, there is not much WBCs so not sure if this diagnosis is true. Urine culture is pending. - Notes Notes: Thank you very much for this consultation. Discussed with Risa Robbins. - Time Time Spent: 50 to 70 Minutes
[2019-11-04 15:29] LABS: BLOOD UREA NITROGEN 10 mg/dL (7-20); CALCIUM 7.8 mg/dL (8.4-10.2); CARBON DIOXIDE 21 mmol/L (22-30); CHLORIDE 81 mmol/L (98-107); GLUCOSE 122 mg/dL (75-110)
[2019-11-04 15:30] LABS: ALBUMIN 3.1 g/dL (3.5-5.0); ALKALINE PHOSPHATASE 100 U/L (38-126); ASPARTATE AMINO TRANSFERASE 31 U/L (14-36); BILIRUBIN,DIRECT 0.3 mg/dL (0.0-0.4); BILIRUBIN,TOTAL 0.9 mg/dL (0.2-1.3)
[2019-11-04 15:31] LABS: ANION GAP 13 (5-19)
[2019-11-04] MEDS: MAGNESIUM SULFATE/D5W 1 GM/100 ML RTUPB IV SCH ×2 (17:35→18:38)
[2019-11-04] MEDS ORDERED: SODIUM CHLORIDE 3% 500 ML IV ONE (18:00)
--- NOTE | 2019-11-04 18:24 | PDOC CRITICAL CARE PROG REPORT ---
General Date:: 11/04/19 ICU Day:: 1 Hospital Day:: 2 Resuscitation Status: Full Code Events in the past 12 to 24 Hours:: HISTORY OF PRESENT ILLNESS: This 64-year-old female reformed smoker is seen in consultation at the request of Dr. Altman cut him another for recommendations on further evaluation and management of hyponatremia. In fact, this patient is being followed by the nephrology service (Dr. Chau). She has requested that the patient be started on 3% saline infusion. In this hospital, per policy, this can only be performed in the ICU. The patient was admitted to [facility] yesterday with a 5-day history of persistent nausea, vomiting and anorexia. She reports that she had bouts of emesis which she describes as being predominantly clear and mucoid. She reports that she has been having copious sinus drainage, which caused her to experience nausea. This level of drainage is not typical for her. She denies chronic seasonal allergies. She has never experienced such symptoms before. She also reports that she was having some sensation of generalized motor weakness. However, she admits that she has difficulties with rheumatoid arthritis that requires Xeljanz and prednisone for maintenance therapy. Today, she noticed that she was experiencing some diplopia, although she denies it at the time of clinical interview. Upon presentation, the patient had Na 118, K 3.3, Mg 1.2. While she has been told that she has "congestive heart failure", she has never been informed of a low serum sodium. She does take a thiazide diuretic for her blood pressure. She denies any history of liver cirrhosis. She claims to have chronic kidney disease. She is known to have a long history of hypertension and type 2 diabetes mellitus. She is on Synthroid for hypothyroidism. She also is known to be asthmatic. REVIEW OF SYSTEMS: As highlighted above in the HPI. Otherwise, the remainder the balance of the review of 13 systems is negative. PAST MEDICAL/SURGICAL HISTORY: Hypertension Hyperlipidemia Coronary artery disease Congestive heart failure Asthma Bronchitis, pneumonia Type 2 diabetes mellitus Hypothyroidism Rheumatoid arthritis SOCIAL HISTORY: Reformed smoker. Denies alcohol consumption. Denies illicit drug abuse. FAMILY HISTORY: Significant for coronary artery disease and hypertension HOME MEDICATIONS: Atenolol 100 mg p.o. nightly [id number] 2 patch topical weekly Flonase nasal spray 50 mcg/spray 1 spray in each nostril daily Hydrochlorothiazide 1 tablet p.o. every morning Hydrocodone/acetaminophen 10/325 1 tablet p.o. twice daily PRN Tresiba (insulin degludec) 40 units subcutaneously every morning Levothyroxine 100 mcg p.o. daily Metformin ER 1 tablet p.o. nightly Pravastatin sodium 1 tablet p.o. nightly Prednisone 2 tablets p.o. twice daily PRN AcipHex 1 tablet p.o. nightly Januvia (sitagliptin 1 tablet p.o. every morning Xeljanz (tofacitinib) 1 tablet p.o. twice daily Lunesta 3 mg p.o. nightly Try lytics 135 mg p.o. nightly Olmesartan 40 mg p.o. daily Telmisartan 80 mg p.o. daily Co-Q10 200 mg p.o. daily Vitamin D3 1250 mcg p.o. weekly ALLERGIES: Sulfa, amlodipine Reason for ICU Addmission:: treatment with 3% saline - Medications: Medications reviewed and adjusted accordingly: Yes Physical Exam Vital Signs: Temp Pulse Resp BP Pulse Ox 97.3 F 80 16 163/71 H 98 11/04/19 15:16 11/04/19 16:29 11/04/19 16:29 11/04/19 15:16 11/04/19 16:29 Intake & Output 11/03/19 11/04/19 11/05/19 06:59 06:59 06:59 Intake Total 1370 1551 Balance 1370 1551 Weight 84.5 kg 85.2 kg Weight/Height Weight 85.2 kg Height 1.63 m General appearance: PRESENT: no acute distress, well-developed, well-nourished Head exam: PRESENT: atraumatic, normocephalic Eye exam: PRESENT: conjunctiva pink, EOMI, PERRLA. ABSENT: scleral icterus Mouth exam: PRESENT: moist, tongue midline Throat exam: PRESENT: post pharyngeal erythema, tonsillar erythema, tonsillog megaly Neck exam: PRESENT: thyromegaly. ABSENT: carotid bruit, JVD, lymphadenopathy Respiratory exam: PRESENT: clear to auscultation leora. ABSENT: rales, rhonchi, wheezes Cardiovascular exam: PRESENT: RRR. ABSENT: diastolic murmur, rubs, systolic murmur Vascular exam: PRESENT: normal capillary refill GI/Abdominal exam: PRESENT: normal bowel sounds, soft. ABSENT: distended, guarding, mass, organolmegaly, rebound, tenderness Extremities exam: PRESENT: full ROM, joint swelling - Bilateral MCP and bilateral PIP, pedal edema. ABSENT: calf tenderness, clubbing Neurological exam: PRESENT: alert, awake, oriented to person, oriented to place, oriented to time, oriented to situation, CN II-XII grossly intact. ABSENT: mot or sensory deficit Skin exam: PRESENT: dry, intact, warm, other - Thin skin. ABSENT: cyanosis Laboratory/Radiographs Laboratory Results: 11/04/19 06:00 11/04/19 14:26 11/04/19 11/04/19 11/04/19 05:20 05:20 05:20 WBC RBC Hgb Hct MCV MCH MCHC RDW Plt Count Seg Neutrophils % Sodium 115.9 L* Potassium 4.0 Chloride 81 L Carbon Dioxide 21 L Anion Gap 14 BUN 10 Creatinine 0.82 Est GFR ( Amer) > 60 Glucose 115 H Serum Osmolality 237 L Uric Acid 2.3 L Calcium 7.9 L Magnesium Total Bilirubin 1.0 AST 41 H Alkaline Phosphatase 101 Total Protein 6.4 Albumin 3.4 L Ur Specific [place] Urine Osmolality 11/04/19 11/04/19 11/04/19 05:20 06:00 09:27 WBC 21.2 H RBC 4.45 Hgb 11.3 L Hct 32.8 L MCV 74 L MCH 25.3 L MCHC 34.3 RDW 16.9 H Plt Count 226 Seg Neutrophils % Not Reportable Sodium Potassium Chloride Carbon Dioxide Anion Gap BUN Creatinine Est GFR ( Amer) Glucose Serum Osmolality Uric Acid Calcium Magnesium 1.5 L Total Bilirubin AST Alkaline Phosphatase Total Protein Albumin Ur Specific [place] Urine Osmolality 548 11/04/19 11/04/19 11/04/19 09:27 13:33 14:26 WBC RBC Hgb Hct MCV MCH MCHC RDW Plt Count Seg Neutrophils % Sodium 112.7 L* 114.5 L* Potassium 4.0 4.0 Chloride 81 L 81 L Carbon Dioxide 20 L 21 L Anion Gap 12 13 BUN 10 10 Creatinine 0.75 0.90 Est GFR ( Amer) > 60 > 60 Glucose 142 H 122 H Serum Osmolality Uric Acid Calcium 7.9 L 7.8 L Magnesium Total Bilirubin 0.9 0.9 AST 31 31 Alkaline Phosphatase 105 100 Total Protein 5.7 L 6.0 L Albumin 3.2 L 3.1 L Ur Specific [place] 1.020 Urine Osmolality 11/03/19 03:19 Troponin I < 0.012 Impressions: Chest X-Ray 11/02/19 22:39 IMPRESSION: No evidence of active intrathoracic disease. All labs, radiographs, diagnostic studies and EKGs were personally reviewed: Yes In addition, reports of radiographic and diagnostic studies were read: Yes Assessment and Plan - Diagnosis (1) Hyponatremia Is this a current diagnosis for this admission?: Yes Plan: Start 3% saline. Serial BMP, Mg. (2) Hypomagnesemia Is this a current diagnosis for this admission?: Yes Plan: Replete (3) Diabetes Qualifiers: Diabetes mellitus type: type 2 Diabetes mellitus usp insulin use: with usp use Diabetes mellitus complication status: without complication Qualified Code(s): E11.9 - Type 2 diabetes mellitus without complications; Z79.4 - snf (current) use of insulin Is this a current diagnosis for this admission?: No (4) UTI (urinary tract infection) Is this a current diagnosis for this admission?: Yes Plan: Empiric Rocephin for UTI. (5) Rheumatoid arthritis Qualifiers: Rheumatoid arthritis location: hand Laterality: bilateral Is this a current diagnosis for this admission?: Yes Plan: Continue Xeljanz/prednisone for now. Critical Time Critical Time (minutes): 45 Level of Care: ICU -: 1. The care of a critical patient is a dynamic process. This note is a benefits representative synopsis but static in nature. The timeframe for treatments given in order is not necessarily the actual time these treatments may have been done. 2. This patient requires critical care secondary to ongoing requirements for therapy not offered or safe outside the critical care environment. Transfer to a lower level of care will result in altered life or limb morbidity and mortality. 3. Multidisciplinary rounds completed. 4. ABCDE bundle addressed.
[2019-11-04 18:42] LABS: ANION GAP 14 (5-19); BLOOD UREA NITROGEN 11 mg/dL (7-20); CALCIUM 7.9 mg/dL (8.4-10.2); CARBON DIOXIDE 19 mmol/L (22-30); CHLORIDE 82 mmol/L (98-107); GLUCOSE 122 mg/dL (75-110); POTASSIUM 4.3 mmol/L (3.6-5.0)
[2019-11-04] MEDS: MAGNESIUM SULFATE 1 GM/D5W 100 ML IV SCH ×2 (19:46→21:26)
[2019-11-04] MEDS: HYDROCODONE/ACETAMINOPHEN 10-325 MG TABLET PO PRN (21:23)
[2019-11-04] MEDS: ATENOLOL 50 MG TABLET PO SCH (21:23)
[2019-11-04] MEDS: FENOFIBRATE NANOCRYSTALLIZED 145 MG TABLET PO SCH (21:24)
[2019-11-04] MEDS: PREDNISONE 1 MG TABLET PO SCH (21:24)
[2019-11-04] MEDS: TOFACITINIB CITRATE 5 MG PO SCH (21:25)
[2019-11-04] MEDS: CEFTRIAXONE 1 GM/D5W RTU 1 GM/50 ML RTUPB IV SCH (21:26)
[2019-11-04] MEDS: ZOLPIDEM TARTRATE 5 MG TABLET PO SCH (21:27)
[2019-11-04] MEDS: ATORVASTATIN CALCIUM 10 MG TABLET PO SCH (21:27)
[2019-11-05 00:44] LABS: BLOOD UREA NITROGEN 10 mg/dL (7-20); CALCIUM 7.3 mg/dL (8.4-10.2); CARBON DIOXIDE 21 mmol/L (22-30); CHLORIDE 84 mmol/L (98-107); GLUCOSE 146 mg/dL (75-110); POTASSIUM 3.8 mmol/L (3.6-5.0)
[2019-11-05 00:45] LABS: ANION GAP 9 (5-19)
[2019-11-05 05:19] LABS: HEMATOCRIT 29.1 % (36.0-47.0); HEMOGLOBIN 9.9 g/dL (12.0-15.5); MEAN CORPUSCULAR HEMOGLOBIN 25.1 pg (27.0-33.4); MEAN CORPUSCULAR HGB CONC 34.2 g/dL (32.0-36.0); MEAN CORPUSCULAR VOLUME 73 fl (80-97); PLATELET COUNT 187 10^3/uL (150-450); RED BLOOD COUNT 3.97 10^6/uL (3.72-5.28); RED CELL DISTRIBUTION WIDTH 16.7 % (11.5-14.0); WHITE BLOOD COUNT 13.9 10^3/uL (4.0-10.5)
[2019-11-05 05:25] LABS: BLOOD UREA NITROGEN 11 mg/dL (7-20); CALCIUM 7.5 mg/dL (8.4-10.2); CARBON DIOXIDE 23 mmol/L (22-30); CHLORIDE 85 mmol/L (98-107); GLUCOSE 130 mg/dL (75-110)
[2019-11-05 05:27] LABS: ANION GAP 8 (5-19)
[2019-11-05 05:50] LABS: ABSOLUTE LYMPHOCYTES# (MANUAL) 0.4 10^3/uL (0.5-4.7); ABSOLUTE MONOCYTES # (MANUAL) 0.4 10^3/uL (0.1-1.4); BAND NEUTROPHILS % (MANUAL) 6 % (3-5); BASOPHILS % (MANUAL) 0 % (0-2); EOSINOPHILS % (MANUAL) 0 % (0-6); LYMPHOCYTES % (MANUAL) 3 % (13-45); MONOCYTES % (MANUAL) 3 % (3-13); SEGMENTED NEUTROPHILS % (MAN) 88 % (42-78); TOTAL CELLS COUNTED 100
[2019-11-05 05:51] LABS: ANISOCYTOSIS 1+; HYPOCHROMASIA 1+; PLATELET COMMENT ADEQUATE; POLYCHROMASIA 1+
[2019-11-05] MEDS: HEPARIN SOD (PORCINE) 5,000 UNIT/ML 1 ML VIAL SUBCUT SCH ×3 (05:55→22:46)
[2019-11-05] MEDS: PANTOPRAZOLE SODIUM 40 MG TABLET.DR PO SCH (05:56)
[2019-11-05] MEDS: LEVOTHYROXINE SODIUM 0.1 MG TABLET PO SCH (05:56)
[2019-11-05] MEDS: SITAGLIPTIN PHOSPHATE 50 MG TABLET PO SCH (08:05)
[2019-11-05] MEDS: INSULIN LISPRO 100 UNIT/ML 3 ML VIAL SUBCUT SCH ×3 (08:05→16:03)
--- NOTE | 2019-11-05 09:07 | PDOC CRITICAL CARE PROG REPORT ---
General Date:: 11/05/19 ICU Day:: 2 Hospital Day:: 3 Resuscitation Status: Full Code Events in the past 12 to 24 Hours:: 11/03: Transferred to ICU for treatment of hyponatremia with 3% saline. 11/04: No new complaints. Nausea and vomiting are subsiding. She has been able to eat dinner yesterday and breakfast this morning. On 3% saline. Sodium 114>116 over the past 4 hours. Potassium 4.0. Magnesium 2.4. WBC downt rending, 13.9. On Rocephin for urinary tract infection. Review of systems relevant to events:: Gastrointestinal: Nausea, vomiting Neurologic: Headache diplopia Reason for ICU Addmission:: treatment with 3% saline - Medications: Medications reviewed and adjusted accordingly: Yes Physical Exam Vital Signs: Temp Pulse Resp BP Pulse Ox 97.6 F 61 17 157/84 H 100 11/05/19 05:33 11/05/19 01:42 11/05/19 06:00 11/05/19 05:58 11/05/19 06:00 Intake & Output 11/04/19 11/05/19 11/06/19 06:59 06:59 06:59 Intake Total 1551 2250 Output Total 501 Balance 1551 1749 Weight 85.2 kg 89.2 kg Weight/Height Weight 89.2 kg Height 1.63 m General appearance: PRESENT: no acute distress, well-developed, well-nourished Head exam: PRESENT: atraumatic, normocephalic Eye exam: PRESENT: conjunctiva pink, EOMI, PERRLA. ABSENT: scleral icterus Mouth exam: PRESENT: moist, tongue midline Neck exam: PRESENT: tenderness, thyromegaly. ABSENT: carotid bruit, JVD, lymphadenopathy Respiratory exam: PRESENT: clear to auscultation leora. ABSENT: rales, rhonchi, wheezes Cardiovascular exam: PRESENT: RRR. ABSENT: diastolic murmur, rubs, systolic murmur Extremities exam: PRESENT: full ROM, joint swelling, pedal edema. ABSENT: calf tenderness, clubbing Neurological exam: PRESENT: alert, awake, oriented to person, oriented to place, oriented to time, oriented to situation, CN II-XII grossly intact. ABSENT: motor sensory deficit Skin exam: PRESENT: dry, intact, warm. ABSENT: cyanosis, rash Laboratory/Radiographs Laboratory Results: 11/05/19 04:49 11/05/19 04:49 11/04/19 11/04/19 11/04/19 05:20 05:20 09:27 WBC RBC Hgb Hct MCV MCH MCHC RDW Plt Count Seg Neutrophils % Sodium Potassium Chloride Carbon Dioxide Anion Gap BUN Creatinine Est GFR ( Amer) Glucose Serum Osmolality 237 L Calcium Magnesium 1.5 L Total Bilirubin AST Alkaline Phosphatase Total Protein Albumin Ur Specific [place] Urine Osmolality 548 11/04/19 11/04/19 11/04/19 09:27 13:33 14:26 WBC RBC Hgb Hct MCV MCH MCHC RDW Plt Count Seg Neutrophils % Sodium 112.7 L* 114.5 L* Potassium 4.0 4.0 Chloride 81 L 81 L Carbon Dioxide 20 L 21 L Anion Gap 12 13 BUN 10 10 Creatinine 0.75 0.90 Est GFR ( Amer) > 60 > 60 Glucose 142 H 122 H Serum Osmolality Calcium 7.9 L 7.8 L Magnesium Total Bilirubin 0.9 0.9 AST 31 31 Alkaline Phosphatase 105 100 Total Protein 5.7 L 6.0 L Albumin 3.2 L 3.1 L Ur Specific [place] 1.020 Urine Osmolality 11/04/19 11/04/19 11/05/19 17:47 17:47 00:25 WBC RBC Hgb Hct MCV MCH MCHC RDW Plt Count Seg Neutrophils % Sodium 114.8 L* 114.8 L* 114.4 L* Potassium 4.3 3.8 Chloride 82 L 84 L Carbon Dioxide 19 L 21 L Anion Gap 14 9 BUN 11 10 Creatinine 0.76 0.83 Est GFR ( Amer) > 60 > 60 Glucose 122 H 146 H Serum Osmolality Calcium 7.9 L 7.3 L Magnesium 1.4 L 2.5 H D Total Bilirubin AST Alkaline Phosphatase Total Protein Albumin Ur Specific [place] Urine Osmolality 11/05/19 11/05/19 04:49 04:49 WBC 13.9 H RBC 3.97 Hgb 9.9 L Hct 29.1 L MCV 73 L MCH 25.1 L MCHC 34.2 RDW 16.7 H Plt Count 187 Seg Neutrophils % Not Reportable Sodium 116.1 L* Potassium 4.0 Chloride 85 L Carbon Dioxide 23 Anion Gap 8 BUN 11 Creatinine 0.84 Est GFR ( Amer) > 60 Glucose 130 H Serum Osmolality Calcium 7.5 L Magnesium 2.4 H Total Bilirubin AST Alkaline Phosphatase Total Protein Albumin Ur Specific [place] Urine Osmolality 11/03/19 03:19 Troponin I < 0.012 Impressions: Chest X-Ray 11/02/19 22:39 IMPRESSION: No evidence of active intrathoracic disease. All labs, radiographs, diagnostic studies and EKGs were personally reviewed: Yes In addition, reports of radiographic and diagnostic studies were read: Yes Assessment and Plan - Diagnosis (1) Hyponatremia Is this a current diagnosis for this admission?: Yes Plan: Start 3% saline. Currently improving at the ideal rate (at least over the last 4 hours). Continue to monitor serial BMP, Mg. (2) Hypomagnesemia Is this a current diagnosis for this admission?: Yes Plan: Resolved (3) Diabetes Qualifiers: Diabetes mellitus type: type 2 Diabetes mellitus group home insulin use: with termite treater helper use Diabetes mellitus complication status: without complication Qualified Code(s): E11.9 - Type 2 diabetes mellitus without complications; Z79.4 - joint terminal attack controller (current) use of insulin Is this a current diagnosis for this admission?: Yes Plan: Humalog sliding scale as needed. (4) UTI (urinary tract infection) Is this a current diagnosis for this admission?: Yes Plan: Empiric Rocephin for UTI (and possible pharyngitis) (5) Rheumatoid arthritis Qualifiers: Rheumatoid arthritis location: hand Laterality: bilateral Is this a current diagnosis for this admission?: Yes Plan: Continue Xeljanz/prednisone for now. Critical Time Critical Time (minutes): 0 Level of Care: ICU -: 1. The care of a critical patient is a dynamic process. This note is a territory sales representative synopsis but static in nature. The timeframe for treatments given in order is not necessarily the actual time these treatments may have been done. 2. This patient requires critical care secondary to ongoing requirements for therapy not offered or safe outside the critical care environment. Transfer to a lower level of care will result in altered life or limb morbidity and mortality. 3. Multidisciplinary rounds completed. 4. ABCDE bundle addressed.
[2019-11-05] MEDS: ALPRAZOLAM 0.25 MG TABLET PO PRN ×2 (09:16→17:19)
[2019-11-05] MEDS: TOFACITINIB CITRATE 5 MG PO SCH ×2 (09:16→22:47)
[2019-11-05] MEDS: DOCUSATE SODIUM 100 MG CAPSULE PO SCH ×2 (09:16→17:10)
[2019-11-05] MEDS: PREDNISONE 1 MG TABLET PO SCH ×2 (09:17→17:10)
[2019-11-05] MEDS: FLUTICASONE NASAL SPRAY 50 MCG/SPRY 120 SPRAY/16 GM NASL SCH (09:17)
[2019-11-05] MEDS ORDERED: CHOLECALCIFEROL 50 MCG PO SCH (10:00)
[2019-11-05] MEDS ORDERED: ERGOCALCIFEROL (VITAMIN D2) 50000 UNIT (1.25 MG) CAPSULE PO SCH ×2 (10:00)
[2019-11-05] MEDS ORDERED: CHOLECALCIFEROL 1250 MCG PO SCH (10:00)
[2019-11-05] MEDS: INSULIN GLARGINE,HUM.REC.ANLOG 1,000 UNIT/10 ML VIAL SUBCUT SCH (10:44)
[2019-11-05 12:26] LABS: ANION GAP 8 (5-19); BLOOD UREA NITROGEN 11 mg/dL (7-20); CALCIUM 7.7 mg/dL (8.4-10.2); CARBON DIOXIDE 23 mmol/L (22-30); CHLORIDE 89 mmol/L (98-107); GLUCOSE 120 mg/dL (75-110); POTASSIUM 4.1 mmol/L (3.6-5.0)
[2019-11-05 18:13] LABS: BLOOD UREA NITROGEN 12 mg/dL (7-20); CALCIUM 7.7 mg/dL (8.4-10.2); CARBON DIOXIDE 25 mmol/L (22-30); CHLORIDE 87 mmol/L (98-107); GLUCOSE 148 mg/dL (75-110)
[2019-11-05 18:21] LABS: ANION GAP 8 (5-19)
[2019-11-05] MEDS: HYDROCODONE/ACETAMINOPHEN 10-325 MG TABLET PO PRN (19:52)
[2019-11-05] MEDS: CEFTRIAXONE 1 GM/D5W RTU 1 GM/50 ML RTUPB IV SCH (22:44)
[2019-11-05] MEDS: ATORVASTATIN CALCIUM 10 MG TABLET PO SCH (22:45)
[2019-11-05] MEDS: ZOLPIDEM TARTRATE 5 MG TABLET PO SCH (22:45)
[2019-11-05] MEDS: FENOFIBRATE NANOCRYSTALLIZED 145 MG TABLET PO SCH (22:45)
[2019-11-05] MEDS: ATENOLOL 50 MG TABLET PO SCH (22:46)
[2019-11-05] MEDS ORDERED: SODIUM CHLORIDE 3% 500 ML IV ONE (23:02)
[2019-11-05] MEDS: SODIUM CHLORIDE 3% 500 ML IV PRN (23:25)
[2019-11-06 01:09] LABS: ANION GAP 8 (5-19); BLOOD UREA NITROGEN 13 mg/dL (7-20); CARBON DIOXIDE 26 mmol/L (22-30); CHLORIDE 89 mmol/L (98-107); GLUCOSE 156 mg/dL (75-110); POTASSIUM 4.1 mmol/L (3.6-5.0)
[2019-11-06] MEDS: LEVOTHYROXINE SODIUM 0.1 MG TABLET PO SCH (05:00)
[2019-11-06] MEDS: PANTOPRAZOLE SODIUM 40 MG TABLET.DR PO SCH (05:00)
[2019-11-06] MEDS: HEPARIN SOD (PORCINE) 5,000 UNIT/ML 1 ML VIAL SUBCUT SCH ×3 (05:01→21:04)
[2019-11-06 05:25] LABS: ANION GAP 7 (5-19); BLOOD UREA NITROGEN 14 mg/dL (7-20); CALCIUM 8.2 mg/dL (8.4-10.2); CARBON DIOXIDE 25 mmol/L (22-30); CHLORIDE 93 mmol/L (98-107); GLUCOSE 121 mg/dL (75-110); POTASSIUM 4.4 mmol/L (3.6-5.0)
[2019-11-06] MEDS: INSULIN LISPRO 100 UNIT/ML 3 ML VIAL SUBCUT SCH ×3 (08:36→16:32)
[2019-11-06] MEDS: SITAGLIPTIN PHOSPHATE 50 MG TABLET PO SCH (08:40)
[2019-11-06] MEDS ORDERED: CLONIDINE 0.3 MG/24 HR PATCH.TDWK TOP SCH (10:00)
[2019-11-06] MEDS: PREDNISONE 1 MG TABLET PO SCH ×2 (10:25→17:14)
[2019-11-06] MEDS: TOFACITINIB CITRATE 5 MG PO SCH ×2 (10:26→21:04)
[2019-11-06] MEDS: INSULIN GLARGINE,HUM.REC.ANLOG 1,000 UNIT/10 ML VIAL SUBCUT SCH (10:26)
[2019-11-06] MEDS: FLUTICASONE NASAL SPRAY 50 MCG/SPRY 120 SPRAY/16 GM NASL SCH (10:26)
[2019-11-06] MEDS: DOCUSATE SODIUM 100 MG CAPSULE PO SCH ×2 (10:26→17:14)
[2019-11-06] MEDS: ALPRAZOLAM 0.25 MG TABLET PO PRN (10:26)
[2019-11-06 13:18] LABS: ANION GAP 6 (5-19); BLOOD UREA NITROGEN 16 mg/dL (7-20); CALCIUM 8.2 mg/dL (8.4-10.2); CARBON DIOXIDE 24 mmol/L (22-30); CHLORIDE 98 mmol/L (98-107); GLUCOSE 135 mg/dL (75-110); POTASSIUM 4.4 mmol/L (3.6-5.0)
--- NOTE | 2019-11-06 16:30 | PDOC CRITICAL CARE PROG REPORT ---
General Date:: 11/06/19 ICU Day:: 3 Hospital Day:: 4 Resuscitation Status: Full Code Events in the past 12 to 24 Hours:: 11/03: Transferred to ICU for treatment of hyponatremia with 3% saline. 11/04: No new complaints. Nausea and vomiting are subsiding. She has been able to eat dinner yesterday and breakfast this morning. On 3% saline. Sodium 1 14>116 over the past 4 hours. Potassium 4.0. Magnesium 2.4. WBC downtrending, 13.9. On Rocephin for urinary tract infection. 11/05: No new symptoms. Nausea and vomiting resolved. Eating well. 3% saline was briefly interrupted today due to expiration of the order. Sodium 120>123>125 over the past 12 hours. Potassium 4.4. Magnesium 2.0. On Rocephin for urinary tract infection. Review of systems relevant to events:: Gastrointestinal: Nausea, vomiting Neurologic: Headache diplopia Reason for ICU Addmission:: treatment with 3% saline - Medications: Medications reviewed and adjusted accordingly: Yes Physical Exam Vital Signs: Temp Pulse Resp BP Pulse Ox 98.9 F 91 26 H 110/58 L 90 L 11/06/19 08:00 11/06/19 08:00 11/06/19 08:00 11/06/19 08:00 11/06/19 08:00 Intake & Output 11/05/19 11/06/19 11/07/19 06:59 06:59 06:59 Intake Total 2250 50 Output Total 501 1900 300 Balance 1749 -1850 -300 Weight 89.2 kg 92.4 kg Weight/Height Weight 92.4 kg Height 1.63 m General appearance: PRESENT: no acute distress, well-developed, well-nourished Eye exam: PRESENT: conjunctiva pink, EOMI, PERRLA. ABSENT: scleral icterus Neck exam: ABSENT: carotid bruit, JVD, lymphadenopathy, thyromegaly Respiratory exam: PRESENT: clear to auscultation leora. ABSENT: rales, rhonchi, wheezes Cardiovascular exam: PRESENT: RRR. ABSENT: diastolic murmur, rubs, systolic murmur GI/Abdominal exam: PRESENT: normal bowel sounds, soft. ABSENT: distended, guarding, mass, organolmegaly, rebound, tenderness Extremities exam: PRESENT: full ROM. ABSENT: calf tenderness, clubbing, pedal edema Neurological exam: PRESENT: alert, awake, oriented to person, oriented to place, oriented to time, oriented to situation, CN II-XII grossly intact. ABSENT: motor sensory deficit Skin exam: PRESENT: dry, intact, warm. ABSENT: cyanosis, rash Laboratory/Radiographs Laboratory Results: 11/05/19 04:49 11/06/19 04:38 11/05/19 11/05/19 11/06/19 12:02 17:44 00:25 Sodium 120.3 L* 119.5 L* 122.8 L Potassium 4.1 4.0 4.1 Chloride 89 L 87 L 89 L Carbon Dioxide 23 25 26 Anion Gap 8 8 8 BUN 11 12 13 Creatinine 0.85 0.92 0.83 Est GFR ( Amer) > 60 > 60 > 60 Glucose 120 H 148 H 156 H Calcium 7.7 L 7.7 L 8.0 L Magnesium 2.3 2.1 2.0 11/06/19 04:38 Sodium 124.7 L Potassium 4.4 Chloride 93 L Carbon Dioxide 25 Anion Gap 7 BUN 14 Creatinine 0.83 Est GFR ( Amer) > 60 Glucose 121 H Calcium 8.2 L Magnesium 2.0 11/03/19 03:19 Troponin I < 0.012 Impressions: Chest X-Ray 11/02/19 22:39 IMPRESSION: No evidence of active intrathoracic disease. All labs, radiographs, diagnostic studies and EKGs were personally reviewed: Yes In addition, reports of radiographic and diagnostic studies were read: Yes Assessment and Plan - Diagnosis (1) Hyponatremia Is this a current diagnosis for this admission?: Yes Plan: Continue 3% saline until sodium 135. Currently improving at the ideal rate with infusion at 30 mL/h. Continue to monitor serial BMP, Mg. (2) Hypomagnesemia Is this a current diagnosis for this admission?: Yes Plan: Resolved (3) Diabetes Qualifiers: Diabetes mellitus type: type 2 Diabetes mellitus shelter insulin use: with terminal worker use Diabetes mellitus complication status: without complication Qualified Code(s): E11.9 - Type 2 diabetes mellitus without complications; Z79 .4 - residential (current) use of insulin Is this a current diagnosis for this admission?: Yes Plan: Humalog sliding scale as needed. (4) UTI (urinary tract infection) Is this a current diagnosis for this admission?: Yes Plan: Empiric Rocephin for UTI (and possible pharyngitis) (5) Rheumatoid arthritis Qualifiers: Rheumatoid arthritis location: hand Laterality: bilateral Is this a current diagnosis for this admission?: Yes Plan: Continue Xeljanz/prednisone for now. Plan Summary: OK for IMCU from pulmonary standpoint. Critical Time Critical Time (minutes): 45 Level of Care: ICU -: 1. The care of a critical patient is a dynamic process. This note is a escrow representative synopsis but static in nature. The timeframe for treatments given in order is not necessarily the actual time these treatments may have been done. 2. This patient requires critical care secondary to ongoing requirements for therapy not offered or safe outside the critical care environment. Transfer to a lower level of care will result in altered life or limb morbidity and mortality. 3. Multidisciplinary rounds completed. 4. ABCDE bundle addressed.
[2019-11-06] MEDS: SODIUM CHLORIDE 3% 500 ML IV PRN (16:33)
[2019-11-06 19:00] LABS: BLOOD UREA NITROGEN 18 mg/dL (7-20); GLUCOSE 157 mg/dL (75-110); POTASSIUM 4.1 mmol/L (3.6-5.0)
[2019-11-06 19:05] LABS: ANION GAP 6 (5-19); CARBON DIOXIDE 24 mmol/L (22-30); CHLORIDE 100 mmol/L (98-107)
[2019-11-06] MEDS: CEFTRIAXONE 1 GM/D5W RTU 1 GM/50 ML RTUPB IV SCH (21:03)
[2019-11-06] MEDS: ATENOLOL 50 MG TABLET PO SCH (21:04)
[2019-11-06] MEDS: ZOLPIDEM TARTRATE 5 MG TABLET PO SCH (21:04)
[2019-11-06] MEDS: ATORVASTATIN CALCIUM 10 MG TABLET PO SCH (21:04)
[2019-11-06] MEDS: FENOFIBRATE NANOCRYSTALLIZED 145 MG TABLET PO SCH (21:04)
[2019-11-07 00:58] LABS: BLOOD UREA NITROGEN 18 mg/dL (7-20); CARBON DIOXIDE 24 mmol/L (22-30); CHLORIDE 105 mmol/L (98-107); GLUCOSE 150 mg/dL (75-110); POTASSIUM 4.6 mmol/L (3.6-5.0)
[2019-11-07 01:16] LABS: ANION GAP 4 (5-19)
[2019-11-07] MEDS: PANTOPRAZOLE SODIUM 40 MG TABLET.DR PO SCH (05:32)
[2019-11-07] MEDS: LEVOTHYROXINE SODIUM 0.1 MG TABLET PO SCH (05:32)
[2019-11-07] MEDS: HEPARIN SOD (PORCINE) 5,000 UNIT/ML 1 ML VIAL SUBCUT SCH ×3 (05:33→21:40)
[2019-11-07 07:02] LABS: ANION GAP 8 (5-19); BLOOD UREA NITROGEN 16 mg/dL (7-20); CALCIUM 8.5 mg/dL (8.4-10.2); CARBON DIOXIDE 25 mmol/L (22-30); CHLORIDE 102 mmol/L (98-107); GLUCOSE 120 mg/dL (75-110); POTASSIUM 4.5 mmol/L (3.6-5.0)
[2019-11-07] MEDS: INSULIN LISPRO 100 UNIT/ML 3 ML VIAL SUBCUT SCH ×3 (08:44→16:11)
[2019-11-07] MEDS: SITAGLIPTIN PHOSPHATE 50 MG TABLET PO SCH (08:45)
--- NOTE | 2019-11-07 09:14 | PDOC CRITICAL CARE PROG REPORT ---
General Date:: 11/07/19 ICU Day:: 4 Hospital Day:: 5 Resuscitation Status: Full Code Events in the past 12 to 24 Hours:: Sodium normalized. Needs to mobilize Reason for ICU Addmission:: treatment with 3% saline, no longer needed. - Medications: Medications reviewed and adjusted accordingly: Yes Vasopressors:: None Sedation:: None Physical Exam Vital Signs: Temp Pulse Resp BP Pulse Ox 99.8 F 87 20 150/68 H 97 11/07/19 08:00 11/07/19 07:32 11/07/19 08:00 11/07/19 08:00 11/07/19 08:00 Intake & Output 11/06/19 11/07/19 11/08/19 06:59 06:59 06:59 Intake Total 50 290 360 Output Total 1900 3300 0 Balance -1850 -3010 360 Weight 92.4 kg 86.3 kg Weight/Height Weight 86.3 kg Height 5 ft 4 in General appearance: PRESENT: no acute distress, cooperative Head exam: PRESENT: atraumatic, normocephalic Eye exam: PRESENT: conjunctiva pink, EOMI, PERRLA. ABSENT: scleral icterus Ear exam: PRESENT: normal external ear exam Mouth exam: PRESENT: moist, tongue midline Respiratory exam: PRESENT: clear to auscultation leora. ABSENT: rales, rhonchi, wheezes Cardiovascular exam: PRESENT: RRR. ABSENT: diastolic murmur, rubs, systolic mu rmur Vascular exam: PRESENT: normal capillary refill GI/Abdominal exam: PRESENT: normal bowel sounds, soft. ABSENT: distended, guarding, mass, organolmegaly, rebound, tenderness Rectal exam: PRESENT: deferred Extremities exam: PRESENT: full ROM. ABSENT: calf tenderness, clubbing, pedal edema Musculoskeletal exam: PRESENT: other - Stiff from RA Neurological exam: PRESENT: alert, awake, oriented to person, oriented to place, oriented to time, oriented to situation, CN II-XII grossly intact. ABSENT: motor sensory deficit Psychiatric exam: PRESENT: appropriate affect, normal mood. ABSENT: homicidal ideation, suicidal ideation Laboratory/Radiographs Laboratory Results: 11/05/19 04:49 11/07/19 06:25 11/06/19 11/06/19 11/07/19 12:47 18:32 00:29 Sodium 127.5 L 129.6 L 133.3 L Potassium 4.4 4.1 4.6 Chloride 98 100 105 Carbon Dioxide 24 24 24 Anion Gap 6 6 4 L BUN 16 18 18 Creatinine 0.85 1.06 0.90 Est GFR ( Amer) > 60 > 60 > 60 Glucose 135 H 157 H 150 H Calcium 8.2 L 8.0 L 8.0 L Magnesium 1.9 1.8 1.8 11/07/19 06:25 Sodium 134.6 L Potassium 4.5 Chloride 102 Carbon Dioxide 25 Anion Gap 8 BUN 16 Creatinine 0.87 Est GFR ( Amer) > 60 Glucose 120 H Calcium 8.5 Magnesium 1.7 11/04/19 09:27 Clean Catch Midstream Urine Culture - Final NO GROWTH 2 DAYS 11/03/19 03:19 Troponin I < 0.012 Impressions: Chest X-Ray 11/02/19 22:39 IMPRESSION: No evidence of active intrathoracic disease. All labs, radiographs, diagnostic studies and EKGs were personally reviewed: Yes In addition, reports of radiographic and diagnostic studies were read: Yes Assessment and Plan - Diagnosis (1) Hyponatremia Is this a current diagnosis for this admission?: Yes Plan: Level is 135. 3% NS off. No IV fluid. Salt tablets if needed. No sign of lung CA. (2) Rheumatoid arthritis Qualifiers: Rheumatoid arthritis location: hand Laterality: bilateral Is this a current diagnosis for this admission?: Yes Plan: Back on Xeljanz and prednisone. Stiff in joints PT ordered. Home when more mobile. (3) Diabetes Qualifiers: Diabetes mellitus type: type 2 Diabetes mellitus bed bug exterminator insulin use: with bed bug exterminator use Diabetes mellitus complication status: without complication Qualified Code(s): E11.9 - Type 2 diabetes mellitus without complications; Z79.4 - intermission coordinator (current) use of insulin Is this a current diagnosis for this admission?: Yes Plan: Controlled. (4) Hypomagnesemia Is this a current diagnosis for this admission?: Yes Plan: Resolved. (5) UTI (urinary tract infection) Is this a current diagnosis for this admission?: Yes Plan: No sign of UTI by UA. Culture negative. Rocephin stopped. Plan Summary: Transfer to regular floor. Home when more mobile Critical Time Critical Time (minutes): 30 Level of Care: MEDICAL Anticipated discharge: Home Within: within 24 hours -: 1. The care of a critical patient is a dynamic process. This note is a loss prevention representative synopsis but static in nature. The timeframe for treatments given in order is not necessarily the actual time these treatments may have been done. 2. This patient requires critical care secondary to ongoing requirements for therapy not offered or safe outside the critical care environment. Transfer to a lower level of care will result in altered life or limb morbidity and mortality. 3. Multidisciplinary rounds completed. 4. ABCDE bundle addressed.
[2019-11-07] MEDS: PREDNISONE 1 MG TABLET PO SCH ×2 (09:51→18:03)
[2019-11-07] MEDS: DOCUSATE SODIUM 100 MG CAPSULE PO SCH ×2 (09:52→18:03)
[2019-11-07] MEDS: TOFACITINIB CITRATE 5 MG PO SCH ×2 (09:52→21:40)
[2019-11-07] MEDS: ALPRAZOLAM 0.25 MG TABLET PO PRN (09:52)
[2019-11-07] MEDS: FLUTICASONE NASAL SPRAY 50 MCG/SPRY 120 SPRAY/16 GM NASL SCH (09:52)
[2019-11-07] MEDS: INSULIN GLARGINE,HUM.REC.ANLOG 1,000 UNIT/10 ML VIAL SUBCUT SCH (09:53)
[2019-11-07 13:19] LABS: ANION GAP 8 (5-19); BLOOD UREA NITROGEN 15 mg/dL (7-20); CALCIUM 8.5 mg/dL (8.4-10.2); CARBON DIOXIDE 26 mmol/L (22-30); CHLORIDE 97 mmol/L (98-107); GLUCOSE 220 mg/dL (75-110); POTASSIUM 4.2 mmol/L (3.6-5.0)
[2019-11-07 20:00] LABS: ANION GAP 8 (5-19); BLOOD UREA NITROGEN 17 mg/dL (7-20); CALCIUM 9.1 mg/dL (8.4-10.2); CARBON DIOXIDE 26 mmol/L (22-30); CHLORIDE 100 mmol/L (98-107); GLUCOSE 177 mg/dL (75-110)
[2019-11-07] MEDS: ATENOLOL 50 MG TABLET PO SCH (21:39)
[2019-11-07] MEDS: FENOFIBRATE NANOCRYSTALLIZED 145 MG TABLET PO SCH (21:40)
[2019-11-07] MEDS: ATORVASTATIN CALCIUM 10 MG TABLET PO SCH (21:40)
[2019-11-07] MEDS: ZOLPIDEM TARTRATE 5 MG TABLET PO SCH (23:10)
[2019-11-08 02:13] LABS: ANION GAP 7 (5-19); BLOOD UREA NITROGEN 19 mg/dL (7-20); CALCIUM 9.1 mg/dL (8.4-10.2); CARBON DIOXIDE 28 mmol/L (22-30); CHLORIDE 99 mmol/L (98-107); GLUCOSE 200 mg/dL (75-110); POTASSIUM 3.9 mmol/L (3.6-5.0)
[2019-11-08] MEDS: HEPARIN SOD (PORCINE) 5,000 UNIT/ML 1 ML VIAL SUBCUT SCH ×3 (06:16→21:10)
[2019-11-08] MEDS: LEVOTHYROXINE SODIUM 0.1 MG TABLET PO SCH (06:17)
[2019-11-08] MEDS: PANTOPRAZOLE SODIUM 40 MG TABLET.DR PO SCH (06:17)
[2019-11-08] MEDS: INSULIN LISPRO 100 UNIT/ML 3 ML VIAL SUBCUT SCH ×3 (07:42→16:42)
[2019-11-08] MEDS: SITAGLIPTIN PHOSPHATE 50 MG TABLET PO SCH (07:42)
[2019-11-08] MEDS: ALPRAZOLAM 0.25 MG TABLET PO PRN (07:43)
[2019-11-08 09:01] LABS: ANION GAP 11 (5-19); BLOOD UREA NITROGEN 16 mg/dL (7-20); CALCIUM 9.7 mg/dL (8.4-10.2); CARBON DIOXIDE 27 mmol/L (22-30); CHLORIDE 98 mmol/L (98-107); GLUCOSE 184 mg/dL (75-110); POTASSIUM 4.2 mmol/L (3.6-5.0)
[2019-11-08] MEDS: PREDNISONE 1 MG TABLET PO SCH ×2 (09:40→17:40)
[2019-11-08] MEDS: DOCUSATE SODIUM 100 MG CAPSULE PO SCH ×2 (09:40→17:39)
[2019-11-08] MEDS: INSULIN GLARGINE,HUM.REC.ANLOG 1,000 UNIT/10 ML VIAL SUBCUT SCH (09:40)
[2019-11-08] MEDS: FLUTICASONE NASAL SPRAY 50 MCG/SPRY 120 SPRAY/16 GM NASL SCH (09:41)
[2019-11-08] MEDS: TOFACITINIB CITRATE 5 MG PO SCH ×2 (09:42→21:11)
[2019-11-08] MEDS: MAGNESIUM OXIDE 400 MG TABLET PO SCH ×2 (12:14→17:39)
[2019-11-08 12:42] LABS: ANION GAP 9 (5-19); BLOOD UREA NITROGEN 17 mg/dL (7-20); CALCIUM 9.6 mg/dL (8.4-10.2); CARBON DIOXIDE 28 mmol/L (22-30); CHLORIDE 97 mmol/L (98-107); GLUCOSE 180 mg/dL (75-110); POTASSIUM 3.8 mmol/L (3.6-5.0)
--- NOTE | 2019-11-08 13:13 | PDOC PROGRESS REPORT ---
Subjective Progress Note for:: 11/08/19 Reason For Visit: HYPONATREMIA,PYELONEPHRITIS 11/08/2019 Admitted with hyponatremia, possible UTI Physical Exam Vital Signs: Temp Pulse Resp BP Pulse Ox 97.4 F 93 17 175/93 H 96 11/08/19 11:03 11/08/19 11:03 11/08/19 11:03 11/08/19 11:03 11/08/19 11:03 Intake & Output 11/07/19 11/08/19 11/09/19 06:59 06:59 06:59 Intake Total 290 1190 240 Output Total 3300 1500 Balance -3010 -310 240 Weight 86.3 kg 87.1 kg 87.1 kg General appearance: PRESENT: no acute distress - Sitting up in the chair Respiratory exam: PRESENT: clear to auscultation leora. ABSENT: rales, rhonchi, wheezes Cardiovascular exam: PRESENT: RRR. ABSENT: diastolic murmur, rubs, systolic murmur Neurological exam: PRESENT: alert, awake, oriented to person, oriented to place, oriented to time, oriented to situation, CN II-XII grossly intact. ABSENT: motor sensory deficit Psychiatric exam: PRESENT: appropriate affect, normal mood. ABSENT: homicidal ideation, suicidal ideation Results Laboratory Results: 11/05/19 04:49 11/08/19 12:15 11/07/19 11/07/19 11/08/19 12:37 18:13 00:20 Sodium 131.1 L 133.7 L 134.0 L Potassium 4.2 4.0 3.9 Chloride 97 L 100 99 Carbon Dioxide 26 26 28 Anion Gap 8 8 7 BUN 15 17 19 Creatinine 0.96 1.09 0.93 Est GFR ( Amer) > 60 > 60 > 60 Glucose 220 H 177 H 200 H Calcium 8.5 9.1 9.1 Magnesium 1.5 L 1.5 L 1.3 L 11/08/19 11/08/19 08:13 12:15 Sodium 135.6 L 133.6 L Potassium 4.2 3.8 Chloride 98 97 L Carbon Dioxide 27 28 Anion Gap 11 9 BUN 16 17 Creatinine 0.86 0.84 Est GFR ( Amer) > 60 > 60 Glucose 184 H 180 H Calcium 9.7 9.6 Magnesium 1.4 L 1.3 L 05/07/20 01:50 Blood Blood Culture - Final NO GROWTH IN 5 DAYS 11/03/19 00:24 Blood Blood Culture - Final NO GROWTH IN 5 DAYS 11/03/19 03:19 Troponin I < 0.012 Impressions: Chest X-Ray 11/02/19 22:39 IMPRESSION: No evidence of active intrathoracic disease. Assessment and Plan - Diagnosis (1) Diabetes Qualifiers: Diabetes mellitus type: type 2 Diabetes mellitus fpc insulin use: with fpc use Diabetes mellitus complication status: without complication Qualified Code(s): E11.9 - Type 2 diabetes mellitus without complications; Z79.4 - residential (current) use of insulin Is this a current diagnosis for this admission?: Yes (2) Hypomagnesemia Is this a current diagnosis for this admission?: Yes (3) Hyponatremia Is this a current diagnosis for this admission?: Yes (4) Rheumatoid arthritis Qualifiers: Rheumatoid arthritis location: hand Laterality: bilateral Is this a current diagnosis for this admission?: Yes (5) UTI (urinary tract infection) Is this a current diagnosis for this admission?: Yes - Plan Summary Summary: 11/08/2019 Temp 97. 5, pulse 82, blood pressure 148/70, O2 saturation 94% on room air WBC is come down to 13.9 renal functions is baseline Sodium is up to 134, admission was 118 Museum is low again 1.3 I started her on 800 mg twice daily Blood cultures negative x5 days urine culture negative x48 hours Antibiotics have been discontinued since her cultures are negative Recheck magnesium tomorrow as well as sodium and plan to discharge to home tomorrow - Time Time Spent with patient: 25-34 minutes
[2019-11-08 19:36] LABS: ANION GAP 9 (5-19); BLOOD UREA NITROGEN 20 mg/dL (7-20); CALCIUM 8.8 mg/dL (8.4-10.2); CARBON DIOXIDE 28 mmol/L (22-30); CHLORIDE 96 mmol/L (98-107); GLUCOSE 199 mg/dL (75-110); POTASSIUM 3.9 mmol/L (3.6-5.0)
[2019-11-08] MEDS: ATENOLOL 50 MG TABLET PO SCH (21:10)
[2019-11-08] MEDS: ATORVASTATIN CALCIUM 10 MG TABLET PO SCH (21:10)
[2019-11-08] MEDS: FENOFIBRATE NANOCRYSTALLIZED 145 MG TABLET PO SCH (21:10)
[2019-11-08] MEDS: ZOLPIDEM TARTRATE 5 MG TABLET PO SCH (21:11)
[2019-11-09] MEDS: HYDROCODONE/ACETAMINOPHEN 10-325 MG TABLET PO PRN (05:35)
[2019-11-09] MEDS: PANTOPRAZOLE SODIUM 40 MG TABLET.DR PO SCH (05:35)
[2019-11-09] MEDS: LEVOTHYROXINE SODIUM 0.1 MG TABLET PO SCH (05:36)
[2019-11-09] MEDS: HEPARIN SOD (PORCINE) 5,000 UNIT/ML 1 ML VIAL SUBCUT SCH ×2 (05:36→13:44)
[2019-11-09 06:21] LABS: HEMATOCRIT 33.8 % (36.0-47.0); HEMOGLOBIN 11.4 g/dL (12.0-15.5); MEAN CORPUSCULAR HEMOGLOBIN 25.3 pg (27.0-33.4); MEAN CORPUSCULAR HGB CONC 33.9 g/dL (32.0-36.0); MEAN CORPUSCULAR VOLUME 75 fl (80-97); PLATELET COUNT 317 10^3/uL (150-450); RED BLOOD COUNT 4.51 10^6/uL (3.72-5.28); RED CELL DISTRIBUTION WIDTH 17.3 % (11.5-14.0); WHITE BLOOD COUNT 9.3 10^3/uL (4.0-10.5)
[2019-11-09 06:34] LABS: ANION GAP 8 (5-19); BLOOD UREA NITROGEN 17 mg/dL (7-20); CALCIUM 9.1 mg/dL (8.4-10.2); CARBON DIOXIDE 30 mmol/L (22-30); CHLORIDE 97 mmol/L (98-107); GLUCOSE 144 mg/dL (75-110); POTASSIUM 4.1 mmol/L (3.6-5.0)
[2019-11-09 07:03] LABS: ABSOLUTE LYMPHOCYTES# (MANUAL) 1.1 10^3/uL (0.5-4.7); ABSOLUTE MONOCYTES # (MANUAL) 0.8 10^3/uL (0.1-1.4); BAND NEUTROPHILS % (MANUAL) 2 % (3-5); BASOPHILS % (MANUAL) 0 % (0-2); EOSINOPHILS % (MANUAL) 0 % (0-6); LYMPHOCYTES % (MANUAL) 12 % (13-45); MONOCYTES % (MANUAL) 9 % (3-13); MYELOCYTES % (MANUAL) 2 % (0); SEGMENTED NEUTROPHILS % (MAN) 75 % (42-78); TOTAL CELLS COUNTED 100
[2019-11-09 07:05] LABS: ANISOCYTOSIS 1+; HYPOCHROMASIA SLIGHT; OVALOCYTES SLIGHT; PLATELET COMMENT ADEQUATE
[2019-11-09] MEDS: INSULIN LISPRO 100 UNIT/ML 3 ML VIAL SUBCUT SCH ×2 (07:42→11:40)
[2019-11-09] MEDS: SITAGLIPTIN PHOSPHATE 50 MG TABLET PO SCH (07:42)
[2019-11-09] MEDS: MAGNESIUM OXIDE 400 MG TABLET PO SCH (09:35)
[2019-11-09] MEDS: PREDNISONE 1 MG TABLET PO SCH (09:35)
[2019-11-09] MEDS: INSULIN GLARGINE,HUM.REC.ANLOG 1,000 UNIT/10 ML VIAL SUBCUT SCH (09:35)
[2019-11-09] MEDS: FLUTICASONE NASAL SPRAY 50 MCG/SPRY 120 SPRAY/16 GM NASL SCH (09:35)
[2019-11-09] MEDS: TOFACITINIB CITRATE 5 MG PO SCH (09:36)
[2019-11-09] MEDS: DOCUSATE SODIUM 100 MG CAPSULE PO SCH (09:36)
[2019-11-09] MEDS: ALPRAZOLAM 0.25 MG TABLET PO PRN (09:37)
[2019-11-09 11:52] VITALS: BP 148/70
[2019-11-09 15:22] LABS: PATH REVIEW PATHOLOGIST REVIEWED
--- NOTE | 2019-11-09 16:33 | PDOC DISCHARGE SUMMARY ---
Impression - Admit/DC Date/PCP Admission Date/Primary Care Provider: 11/03/19 03:17 ANDRY PANTOJA MD Discharge Date: 11/09/19 - Discharge Diagnosis (1) Diabetes Is this a current diagnosis for this admission?: Yes (2) Hypomagnesemia Is this a current diagnosis for this admission?: Yes (3) Hyponatremia Is this a current diagnosis for this admission?: Yes (4) Rheumatoid arthritis Is this a current diagnosis for this admission?: Yes (5) UTI (urinary tract infection) Is this a current diagnosis for this admission?: Yes - Assessment Summary: 11/08/2019 Temp 97. 5, pulse 82, blood pressure 148/70, O2 saturation 94% on room air WBC is come down to 13.9 renal functions is baseline Sodium is up to 134, admission was 118 Museum is low again 1.3 I started her on 800 mg twice daily Blood cultures negative x5 days urine culture negative x48 hours Antibiotics have been discontinued since her cultures are negative Recheck magnesium tomorrow as well as sodium and plan to discharge to home tomorrow Was discharged home today in good condition, was originally admitted for possible UTI and hyponatremia as well as diabetes, rheumatoid arthritis, hypo- magnesium She was admitted on 02 November with nausea and vomiting x5 days she was found to be hyponatremic hypo-magnesium and a CT abdomen and pelvis showed perinephric stranding without abscess or hydronephrosis He was admitted to the hospital for IV fluids and IV antibiotics CBC on admission showed a white count 15,100 went up to 21.2 and then on the ninth it was down to 13.9 and today at discharge it was normal at 9.3 Chemistry profile on admission was grossly normal however magnesium was low 1.3 today on discharge it did come up just slightly to 1.4 patient was discharged home on p.o. mag oxide 400 mg twice daily to get a repeat Alfredo blood test in 1 week Alejandra at time of discharge showed a sodium 134 potassium 4.1 BUN is 17 creatinine 0.8 Fingerstick glucose 137 Hemoglobin A1c of 6.8 Urine culture came back negative blood cultures came back negative antibiotics were discontinued once the cultures returned Patient was medically stable at the time of discharge I talked to her daughterShe Patient was given the name of another provider in case she wanted to change providers - Additional Information Resuscitation Status: Full Code Discharge Diet: Diabetic Discharge Activity: Activity As Tolerated Referrals: ANDRY PANTOJA MD [Primary Care Provider] - Follow up as needed (LEFT A MESSAGE WITH THE PROVIDER FOR FOLLOW UP APPT.) Prescriptions: Magnesium Oxide [Mag-Ox 400 mg Tablet] 400 mg PO BID #60 tab Home Medications: Atenolol 100 mg PO QHS 01/07/17 Clonidine [Catapres-Tts 3 (0.3 mg/24 Hr) Transderm Patch] 2 patch TOP CARTER@1000 01/07/17 Fluticasone Propionate [Flonase Nasal [place] 50 Mcg/[place] 16 gm] 1 dose IN DAILY 01/07/17 Hydrochlorothiazide 1 tab PO QAM 01/07/17 Hydrocodone/Acetaminophen [Hydrocodone-Acetamin 10-325 mg] 1 tab PO BID PRN 01/07/17 Insulin Degludec [Tresiba Flextouch U-200] 40 unit SQ QAM 01/07/17 Levothyroxine Sodium 100 mcg PO DAILY 01/07/17 Metformin HCl [Metformin ER Gastric] 1 tab PO QHS 01/07/17 Pravastatin Sodium 1 tab PO QHS 01/07/17 Prednisone 2 tab PO BID PRN 01/07/17 Rabeprazole Sodium [Aciphex] 1 tab PO QHS 01/07/17 Sitagliptin Phosphate [Januvia] 1 tab PO QAM 01/07/17 Tofacitinib Citrate [Xeljanz] 1 tab PO BID 01/07/17 Eszopiclone [Lunesta] 3 mg PO QHS 03/30/17 Fenofibric Acid (Choline) [Trilipix] 135 mg PO QHS 03/30/17 Olmesartan Medoxomil 40 mg PO DAILY 11/03/19 Telmisartan 80 mg PO DAILY 11/03/19 Ubidecarenone [Coq10] 200 mg PO DAILY 11/03/19 Cholecalciferol (Vitamin D3) [Weekly-D] 1,250 mcg PO SA@1000 11/04/19 Acetaminophen [Tylenol 325 mg Tablet] 650 mg PO Q4HP PRN tablet 11/09/19 Alprazolam [Xanax 0.25 mg Tablet] 0.25 mg PO DAILY PRN tablet 11/09/19 Docusate Sodium [Colace 100 mg Capsule] 100 mg PO BID capsule 11/09/19 Mag Hydrox/Al Hydrox/Simeth [Maalox Plus Susp 30 Udcup] 30 ml PO Q6HP PRN udc 11/09/19 Magnesium Hydroxide [Milk of Magnesia 30 ml Udcup] 30 ml PO HSP PRN udc 10/27 09/15 Magnesium Oxide [Mag-Ox 400 mg Tablet] 400 mg PO BID #60 tab 11/09/19 Prednisone [Deltasone 1 mg Tablet] 2 mg PO BID tablet 11/09/19 History of Present Illiness History of Present Illness: WANG CONTEH is a 64 year old female Physical Exam Vital Signs: Temp Pulse Resp BP Pulse Ox 98.4 F 70 16 148/70 H 94 11/09/19 11:50 11/09/19 11:50 11/09/19 11:50 11/09/19 11:50 11/09/19 11:50 Intake & Output 11/08/19 11/09/19 11/10/19 06:59 06:59 06:59 Intake Total 1190 702 Output Total 1500 Balance -310 702 Weight 87.1 kg 80.5 kg Results Laboratory Results: WBC 9.3 10^3/uL (4.0-10.5) 11/09/19 06:09 RBC 4.51 10^6/uL (3.72-5.28) 11/09/19 06:09 Hgb 11.4 g/dL (12.0-15.5) L 11/09/19 06:09 Hct 33.8 % (36.0-47.0) L 11/09/19 06:09 MCV 75 fl (80-97) L 11/09/19 06:09 MCH 25.3 pg (27.0-33.4) L 11/09/19 06:09 MCHC 33.9 g/dL (32.0-36.0) 11/09/19 06:09 RDW 17.3 % (11.5-14.0) H 11/09/19 06:09 Plt Count 317 10^3/uL (150-450) 11/09/19 06:09 Lymph % (Auto) Not Reportable 11/09/19 06:09 [place] % (Auto) Not Reportable 11/09/19 06:09 Eos % (Auto) Not Reportable 11/09/19 06:09 Baso % (Auto) Not Reportable 11/09/19 06:09 Absolute Neuts (auto) Not Reportable 11/09/19 06:09 Absolute Lymphs (auto) Not Reportable 11/09/19 06:09 Absolute Monos (auto) Not Reportable 11/09/19 06:09 Absolute Eos (auto) Not Reportable 11/09/19 06:09 Absolute Basos (auto) Not Reportable 11/09/19 06:09 Total Counted 100 11/09/19 06:09 Seg Neutrophils % Not Reportable 11/09/19 06:09 Seg Neuts % (Manual) 75 % (42-78) 11/09/19 06:09 Band Neutrophils % 2 % (3-5) L 11/09/19 06:09 Lymphocytes % (Manual) 12 % (13-45) L 11/09/19 06:09 Atypical Lymphs % 1 % (0) 11/04/19 06:00 Monocytes % (Manual) 9 % (3-13) 11/09/19 06:09 Eosinophils % (Manual) 0 % (0-6) 11/09/19 06:09 Basophils % (Manual) 0 % (0-2) 11/09/19 06:09 Myelocytes % 2 % (0) H 11/09/19 06:09 Abs Neuts (Manual) 7.3 10^3/uL (1.7-8.2) 11/09/19 06:09 Abs Lymphs (Manual) 1.1 10^3/uL (0.5-4.7) 11/09/19 06:09 Abs Monocytes (Manual) 0.8 10^3/uL (0.1-1.4) 11/09/19 06:09 Absolute Eos (Manual) 0.0 10^3/uL (0.0-0.6) 11/09/19 06:09 Abs Basophils (Manual) 0.0 10^3/uL (0.0-0.2) 11/09/19 06:09 Hypersegmented Neuts PRESENT 11/04/19 06:00 Clumped Platelets PRESENT 11/04/19 06:00 Platelet Comment ADEQUATE 11/09/19 06:09 Polychromasia 1+ 11/05/19 04:49 Hypochromasia SLIGHT 11/09/19 06:09 Poikilocytosis SLIGHT 11/04/19 06:00 Basophilic Stippling PRESENT 11/04/19 06:00 Anisocytosis 1+ 11/09/19 06:09 Microcytosis 1+ 11/09/19 06:09 Tear Drop Cells SLIGHT 11/03/19 03:19 Ovalocytes SLIGHT 11/09/19 06:09 Sodium 134.6 mmol/L (137-145) L 11/09/19 06:09 Potassium 4.1 mmol/L (3.6-5.0) 11/09/19 06:09 Chloride 97 mmol/L (98-107) L 11/09/19 06:09 Carbon Dioxide 30 mmol/L (22-30) 11/09/19 06:09 Anion Gap 8 (5-19) 11/09/19 06:09 BUN 17 mg/dL (7-20) 11/09/19 06:09 Creatinine 0.80 mg/dL (0.52-1.25) 11/09/19 06:09 Est GFR ( Amer) > 60 (>60) 11/09/19 06:09 Est GFR (MDRD) Non-Af > 60 (>60) 11/09/19 06:09 Glucose 144 mg/dL (75-110) H 11/09/19 06:09 POC Glucose 137 mg/dL (70-110) H 11/09/19 11:23 Hemoglobin A1c % 6.8 % (4.7-6.0) H 11/04/19 06:00 Serum Osmolality 237 mOsm/kg (275-301) L 11/04/19 05:20 Lactic Acid 0.7 mmol/L (0.7-2.1) 11/03/19 00:41 Uric Acid 2.3 mg/dL (2.5-7.5) L 11/04/19 05:20 Calcium 9.1 mg/dL (8.4-10.2) 11/09/19 06:09 Magnesium 1.4 mg/dL (1.6-2.3) L 11/09/19 06:09 Total Bilirubin 0.9 mg/dL (0.2-1.3) 11/04/19 14:26 Direct Bilirubin 0.3 mg/dL (0.0-0.4) 11/04/19 14:26 Neonat Total Bilirubin Not Reportable 11/04/19 14:26 Neonat Direct Bilirubin Not Reportable 11/04/19 14:26 Neonat Indirect Bili Not Reportable 11/04/19 14:26 AST 31 U/L (14-36) 11/04/19 14:26 ALT 22 U/L (<35) 11/04/19 14:26 Alkaline Phosphatase 100 U/L (38-126) 11/04/19 14:26 Troponin I < 0.012 ng/mL 11/03/19 03:19 Total Protein 6.0 g/dL (6.3-8.2) L 11/04/19 14:26 Albumin 3.1 g/dL (3.5-5.0) L 11/04/19 14:26 Lipase 65.4 U/L (23-300) 11/02/19 21:00 TSH 1.01 uIU/mL (0.47-4.68) 11/03/19 03:19 Cortisol AM Sample 27.70 ug/dL (4.46-22.7) H 11/04/19 05:20 Urine Color YELLOW 11/02/19 23:53 Urine Appearance CLEAR 11/02/19 23:53 Urine pH 6.0 (5.0-9.0) 11/02/19 23:53 Ur Specific [place] 1.020 11/04/19 09:27 Urine Protein NEGATIVE mg/dL (NEGATIVE) 11/02/19 23:53 Urine Glucose (UA) NEGATIVE mg/dL (NEGATIVE) 11/02/19 23:53 Urine Ketones TRACE mg/dL (NEGATIVE) H 11/02/19 23:53 Urine Blood NEGATIVE (NEGATIVE) 11/02/19 23:53 Urine Nitrite POSITIVE (NEGATIVE) H 11/02/19 23:53 Urine Bilirubin NEGATIVE (NEGATIVE) 11/02/19 23:53 Urine Urobilinogen NEGATIVE mg/dL (<2.0) 11/02/19 23:53 Ur Leukocyte Esterase NEGATIVE (NEGATIVE) 11/02/19 23:53 Urine WBC (Auto) 1 /HPF 11/02/19 23:53 Urine RBC (Auto) 0 /HPF 11/02/19 23:53 Urine Bacteria (Auto) 2+ /HPF 11/02/19 23:53 Urine Mucus (Auto) RARE /LPF 11/02/19 23:53 Urine Osmolality 548 mOsm/kg (300-900) 11/04/19 09:27 Urine Creatinine 136.5 mg/dL (15-278) 11/04/19 09:27 Urine Sodium 24 mmol/L (30-90) L 11/04/19 09:27 Urine Total Protein 43.8 mg/dL (<12) H 11/04/19 09:27 Urine Ascorbic Acid NEGATIVE (NEGATIVE) 11/02/19 23:53 Slides for Path Review PATHOLOGIST REVIEWED 11/09/19 06:09 11/03/19 03:19 Troponin I < 0.012 Impressions: Chest X-Ray 11/02/19 22:39 IMPRESSION: No evidence of active intrathoracic disease. Stroke Is this a Stroke Patient?: No Acute Heart Failure - Is this a Heart Failure Patient?: No
== END 2019-11-09 14:12 | disposition home health service (06) | DRG 641 ==
LOC: ER 20:44 → EH 11-03 03:17 → 4N 11-03 04:00 → ICU 11-04 16:50 → 4N 11-07 16:25
PROVIDERS: ADMIT Internal Medicine; ATTEND Physician Assistant
DX: E87.1 Hypo-osmolality and hyponatremia (principal); E83.42 Hypomagnesemia; I25.10 Atherosclerotic heart disease of native coronary artery without angina pectoris; E78.5 Hyperlipidemia, unspecified; E03.9 Hypothyroidism, unspecified; E86.1 Hypovolemia; E11.22 Type 2 diabetes mellitus with diabetic chronic kidney disease; N18.9 Chronic kidney disease, unspecified; I12.9 Hypertensive chronic kidney disease with stage 1 through stage 4 chronic kidney disease, or unspecified chronic kidney disease; M06.842 Other specified rheumatoid arthritis, left hand; M06.841 Other specified rheumatoid arthritis, right hand; Z79.4 Long term (current) use of insulin; Z79.899 Other long term (current) drug therapy; Z87.891 Personal history of nicotine dependence; Z79.52 Long term (current) use of systemic steroids; Z88.2 Allergy status to sulfonamides; Z88.8 Allergy status to other drugs, medicaments and biological substances; Z79.890 Hormone replacement therapy
CPT/HCPCS: 36415; 71045; 74176; 80048; 80053; 81001; 81002; 82533; 82570; 82962; 83036; 83605; 83690; 83735; 83930; 83935; 84156; 84295; 84300; 84443; 84484; 84550; 85025; 87040; 87070; 87086; 93005; 93010; 96361; 96365; 96366; 96367; 96375; 96376; 99221; 99291; J0696; J1644; J1815; J1956; J2405; J3010; J3475; J3490; J7030; J7512

== ENCOUNTER → 2020-02-29 | Outpatient (CLI) | payer MEDICARE ==
--- NOTE | 2020-02-29 12:00 | WOMENS IMAGING REPORT ---
EXAM DESCRIPTION: BONE DENSITY HIP/SPINE IMAGES COMPLETED DATE/TIME: 02/29/2020 10:48 am REASON FOR STUDY: M81.0 AGE-RELATED OSTEOPOROSIS WITHOUT CURRENT PATHOLOGICAL FRACTURE M81.0 AGE-RE LATED OSTEOPOROSIS W/O CURRENT PATHOLOGICAL FRAC COMPARISON: 02/19/2005 TECHNIQUE: Dual-Energy X-ray Absorptiometry (DEXA) of the AP Spine and Hip. LIMITATIONS: None. FINDINGS: LUMBAR SPINE: The bone mineral density (BMD) measured from L1-L4 in the AP projection correlates with a T-score of -0.7, which is normal as defined by the World Health Organization. BMD Change vs Baseline: +1.8% HIP: The bone mineral density (BMD) measured in the left hip correlates with a T-score of 0.0, which is no rmal as defined by the World Health Organization. BMD Change vs Baseline: -21.5% 10 year Fracture Risk Assessment: Major Osteoporotic Fracture: Not available. Hip Fracture: Not available. IMPRESSION: 1. LUMBAR SPINE WHO CLASSIFICATION: NORMAL. 2. HIP WHO CLASSIFICATION: NORMAL. OVERALL ASSESSMENT: WHO CLASSIFICATION: NORMAL. COMMENT: The World Health Organization defines low BMD as follows: T-score: Normal: At or above -1.0 Osteopenia: Between -1.0 and -2.5 Osteoporosis: At or below -2.5 without fractures Established osteoporosis: At or below -2.5 with fractures In general, you may wish to consider: Diagnosis Treatment Follow-up DEXA Normal BMD Prevention 2-3 years Osteopenia Prevention/Therapy 1-2 years Osteoporosis Therapy Yearly TECHNICAL DOCUMENTATION: JOB ID: [id number] 2010 [employer]- All Rights Reserved Reading location - IP/workstation name: [email or web address]
== END ==
LOC: WI 10:15
PROVIDERS: ATTEND Nurse Practitioner Gerontology
DX: M81.0 Age-related osteoporosis without current pathological fracture (principal)
CPT/HCPCS: 77080

== ENCOUNTER → 2020-04-09 | Outpatient (CLI) | payer MEDICARE ==
--- NOTE | 2020-04-09 12:59 | WOMENS IMAGING REPORT ---
EXAM DESCRIPTION: BILAT SCREENING MAMMO W/CAD IMAGES COMPLETED DATE/TIME: 04/09/2020 11:40 am REASON FOR STUDY: Z12.31 ENCNTR SCREEN MAMMOGRAM FOR MALIGNANT NEOPLASM OF BREAST Z12.31 ENCNTR SC REEN MAMMOGRAM FOR MALIGNANT NEOPLASM OF HILARIO COMPARISON: 2016 and subsequent EXAM PARAMETERS: Standard craniocaudal and mediolateral oblique views of each breast recorded using digital acquisition. Read with the assistance of CAD. .[facility] - [employer] Version 9.2 LIMITATIONS: None. FINDINGS: Findings present which are benign by mammographic criteria. No suspicious masses, calcifi cations or architectural distortion. Pertinent benign findings: Scattered stable benign calcifications. Benign mammographic findings may include one or more of the following: Smooth masses, popcorn/rim/co arse calcifications, asymmetries, post-procedure changes, and lesions with long-standing stability. IMPRESSION: BENIGN MAMMOGRAPHIC FINDINGS. BIRADS 2 BREAST DENSITY: b. There are scattered areas of fibroglandular density. BIRAD: ASSESSMENT: 2 BENIGN FINDING(S) RECOMMENDATION: ROUTINE SCREENING COMMENT: The patient has been notified of the results by letter per SA requirements. Additional no tification policies are in place for contacting patient with suspicious or incomplete findings. Quality ID #[id number]: The [employer] recommends an annual screening mammogram for women aged 40 years or over. This facility utilizes a reminder system to ensure that all patients receive reminder letters, and/or direct phone calls for appointments. This includes reminders for routine scr eening mammograms, diagnostic mammograms, or other Breast Imaging Interventions when appropriate. Th is patient will be placed in the appropriate reminder system. TECHNICAL DOCUMENTATION: FINDING NUMBER: (1) ASSESSMENT: (1) JOB ID: [id number] 2010 [employer]- All Rights Reserved Reading location - IP/workstation name: [email or web address]
== END ==
LOC: WI 11:10
PROVIDERS: ATTEND Internal Medicine Cardiovascular Disease
DX: Z12.31 Encounter for screening mammogram for malignant neoplasm of breast (principal)
CPT/HCPCS: 77067